=== PATIENT | female | born 1960 | race Caucasian/White ===

== ENCOUNTER 2016-11-28 13:57 | Inpatient (IN) | payer MEDICARE, OTHER ==
[2016-11-28] MEDS ORDERED: SODIUM CHLORIDE 0.9% 1,000 ML IV STA ×2 (17:00→17:41)
--- NOTE | 2016-11-28 17:32 | XR ---
EXAMINATION TYPE: XR KUB DATE OF EXAM: 11/28/2016 5:25 PM COMPARISON: 10/18/2016 HISTORY: Hematuria and back pain TECHNIQUE: 2 views FINDINGS: There are bilateral double-J ureteral stents. Bowel gas pattern is normal. There is no sign of intestinal obstruction or pneumoperitoneum. Fecal pattern is normal. There is amorphous 2 x 1 cm calcification over the lower pole left kidney. Lung bases are clear. There is no evidence of a mass. IMPRESSION: Nonacute abdomen. No change compared to last exam. Amorphous calcification or density ove r the left mid abdomen is below the lower pole of the left kidney on the CT scan of 08/29/2016 and is of uncertain significance..
[2016-11-28] MEDS ORDERED: HYDROmorphone 1 MG/ML 1 ML SYRINGE IVP STA (17:41)
--- NOTE | 2016-11-28 17:48 | ED ---
Abdominal Pain HPI - General Chief Complaint: Abdominal Pain Stated Complaint: Back Pain Time Seen by Provider: 11/28/16 17:00 Source: patient Mode of arrival: ambulatory Limitations: no limitations - History of Present Illness Initial Comments: This 55-year-old white female presents with a complaint of some hematuria which started yesterday. She's also had dysuria frequency and urgency. She developed some abdominal pain and back pain since last night. She denies any nausea or vomiting. She denies any fevers but has had occasional chills. She does have a history of previous urinary tract infections. She states that the pain is fairly severe and not controlled with her normal pain medications. She does have a history of breast cancer and is on chemotherapy for this. Apparently has spread to her liver and spine. Her last chemotherapy was approximately 9 days ago. She also relates that she has ureteral stents in place due to the cancer pushing on her kidneys. No other complaints or modifying factors. - Related Data Home Medications Medication Instructions Recorded Confirmed Cholecalciferol [Vitamin D3] 1,000 unit PO DAILY 02/19/15 11/28/16 Ondansetron [Zofran] 4 mg PO Q8HR PRN 07/18/16 11/28/16 fentaNYL 100MCG/HR PATCH 1 patch TRANSDERM Q72H 07/18/16 11/28/16 [Duragesic 100MCG/HR] Docusate [Colace] 200 mg PO DAILY 08/28/16 11/28/16 Ciprofloxacin HCl [Cipro] 250 mg PO Q12HR 11/28/16 11/28/16 Ferrous Sulfate [Feosol] 325 mg PO DAILY 11/28/16 11/28/16 oxyCODONE-APAP 10-325MG [Percocet 1 tab PO Q6HR PRN 11/28/16 11/28/16 10-325 mg] Previous Rx's Medication Instructions Recorded fentaNYL 25MCG/HR PATCH [Duragesic 1 patch TRANSDERM Q72H #7 patch 07/22/16 25MCG/HR] Allergies Allergy/AdvReac Type Severity Reaction Status Date / Time No Known Allergies Allergy Verified 11/28/16 17:00 Review of Systems ROS Statement: Those systems with pertinent positive or pertinent negative responses have been documented in the HPI. ROS Other: All systems not noted in ROS Statement are negative. Past Medical History Past Medical History: Cancer Additional Past Medical History / Comment(s): liver spine neck mets primary breast cancer, chemo 9 days ago, History of Any Multi-Drug Resistant Organisms: None Reported Past Surgical History: Hysterectomy Additional Past Surgical History / Comment(s): Bilateral no iv bp on left arm , lymph node removal left side, urinary stents Past Anesthesia/Blood Transfusion Reactions: No Reported Reaction Additional Past Anesthesia/Blood Transfusion Reaction / Comment(s): Just received blood Past Psychological History: No Psychological Hx Reported Additional Psychological History / Comment(s): Pt lives with family in a home. Pt is independent. She still drives a car. She does not have any outside agency helping at this time. She uses no assistive devices. Smoking Status: Never smoker Past Alcohol Use History: None Reported Additional Past Alcohol Use History / Comment(s): started smoking in 1978,quit 2001.was smoking 2 ppd by the time she quit. Past Drug Use History: None Reported - Past Family History Father Family Medical History: No Reported History Mother Family Medical History: Cancer Additional Family Medical History / Comment(s): Mother of Hodgkins disease. General Exam - General Exam Comments Initial Comments: GENERAL: The patient is well nourished and well hydrated. VITAL SIGNS: Heart rate, blood pressure, respiratory rate reviewed as recorded in nurse's notes. EYES: Pupils are round and reactive. Extraocular movements are intact. No conjunctival / lid redness or swelling. ENT: No external evidence of injury, swelling, or ecchymosis. Airway is patent. Throat is clear. NECK: Nontender. No swelling or evidence of injury. No subcutaneous emphysema. Trachea is midline. No thyroid mass. HEART: Regular rate and rhythm. Good peripheral pulses. LUNGS/CHEST: Breath sounds clear and equal bilaterally. No rales, rhonchi, or wheezes. No ecchymosis, subcutaneous emphysema, or tenderness. ABDOMEN: There is tenderness diffusely throughout the abdomen No palpable masses or organomegaly. No peritoneal signs. No abdominal wall swelling or ecchymosis. EXTREMITIES: No extremity tenderness. Normal muscle tone and function. There is tenderness in the bilateral para lumbar musculature worse on the right. NEUROLOGIC: Sensation is grossly intact. Cranial nerve exam reveals face is symmetrical, tongue is midline, speech is clear. SKIN: No abrasions or ecchymosis is noted. No induration or masses noted. PSYCHIATRIC: Alert and oriented. Appropriate behavior and judgment. Limitations: no limitations Course Vital Signs 11/28/16 11/28/16 11/28/16 14:29 18:41 19:00 Temperature 98.0 F 98.8 F Pulse Rate 93 68 Respiratory 16 16 16 Rate Blood Pressure 119/74 94/58 83/54 O2 Sat by Pulse 98 99 97 Oximetry 11/28/16 11/28/16 19:09 20:00 Temperature Pulse Rate 73 Respiratory 16 Rate Blood Pressure 107/62 120/73 O2 Sat by Pulse 98 97 Oximetry Medical Decision Making - Medical Decision Making The patient was seen and examined. All diagnostics were reviewed. An IV is started and she was hydrated. She also received 1 mg of Dilaudid and 4 mg of morphine. She received IV Rocephin after urinalysis does show some hematuria with possible urinary tract infection. The laboratory showed a slight increase in creatinine at 1.22 as well as a decreased chronic hemoglobin/anemia with a hemoglobin of 8.1. The computed tomography scan of the abdomen and pelvis shows evidence of bilateral hydronephrosis possibly related to malfunctioning ureteral stents. It also shows some ascites, liver metastases, and spinal metastases. The KUB x-ray shows a 2 cm 1 cm calcification in the left lower pole of the kidney and significance. It is felt associated require admission to the hospital for intractable pain. The case is discussed with Dr. Hall and he would like admission to medicine with him to consult. - Lab Data Result diagrams: 11/28/16 18:30 11/28/16 18:30 Lab Results 11/28/16 11/28/16 11/28/16 Range/Units 18:15 18:30 18:30 WBC 2.4 L (3.8-10.6) k/uL RBC 2.67 L (3.80-5.40) m/uL Hgb 8.1 L (11.4-16.0) gm/dL Hct 25.0 L (34.0-46.0) % MCV 93.4 (80.0-100.0) fL MCH 30.3 (25.0-35.0) pg MCHC 32.4 (31.0-37.0) g/dL RDW 15.0 (11.5-15.5) % Plt Count 135 L (150-450) k/uL Neutrophils % 74 % Lymphocytes % 12 % Monocytes % 8 % Eosinophils % 4 % Basophils % 0 % Neutrophils # 1.8 (1.3-7.7) k/uL Lymphocytes # 0.3 L (1.0-4.8) k/uL Monocytes # 0.2 (0-1.0) k/uL Eosinophils # 0.1 (0-0.7) k/uL Basophils # 0.0 (0-0.2) k/uL PT (9.0-12.0) sec INR (<1.1) APTT (22.0-30.0) sec Sodium 136 L (137-145) mmol/L Potassium 4.2 (3.5-5.1) mmol/L Chloride 101 (98-107) mmol/L Carbon Dioxide 27 (22-30) mmol/L Anion Gap 8 mmol/L BUN 18 H (7-17) mg/dL Creatinine 1.22 H (0.52-1.04) mg/dL Est GFR (MDRD) Af Amer 56 (>60 ml/min/1.73 sqM) Est GFR (MDRD) Non-Af 46 (>60 ml/min/1.73 sqM) Glucose 98 (74-99) mg/dL Calcium 8.6 (8.4-10.2) mg/dL Total Bilirubin 0.5 (0.2-1.3) mg/dL AST 58 H (14-36) U/L ALT 52 (9-52) U/L Alkaline Phosphatase 395 H (38-126) U/L Total Protein 5.5 L (6.3-8.2) g/dL Albumin 3.0 L (3.5-5.0) g/dL Amylase 36 (30-110) U/L Lipase 101 (23-300) U/L Urine Color Yellow Urine Appearance Cloudy H (Clear) Urine pH 6.5 (5.0-8.0) Ur Specific [place] 1.019 (1.001-1.035) Urine Protein 3+ H (Negative) Urine Glucose (UA) Negative (Negative) Urine Ketones Negative (Negative) Urine Blood Moderate H (Negative) Urine Nitrate Negative (Negative) Urine Bilirubin Negative (Negative) Urine Urobilinogen <2.0 (<2.0) mg/dL Ur Leukocyte Esterase Trace H (Negative) Urine RBC >182 H (0-5) /hpf Urine WBC 9 H (0-5) /hpf Ur Squamous Epith Cells 2 (0-4) /hpf Calcium Oxalate Crystal Occasional H (None) /hpf Urine Bacteria Rare H (None) /hpf Hyaline Casts 3 H (0-2) /lpf Urine Mucus Few H (None) /hpf 11/28/16 Range/Units 18:30 WBC (3.8-10.6) k/uL RBC (3.80-5.40) m/uL Hgb (11.4-16.0) gm/dL Hct (34.0-46.0) % MCV (80.0-100.0) fL MCH (25.0-35.0) pg MCHC (31.0-37.0) g/dL RDW (11.5-15.5) % Plt Count (150-450) k/uL Neutrophils % % Lymphocytes % % Monocytes % % Eosinophils % % Basophils % % Neutrophils # (1.3-7.7) k/uL Lymphocytes # (1.0-4.8) k/uL Monocytes # (0-1.0) k/uL Eosinophils # (0-0.7) k/uL Basophils # (0-0.2) k/uL PT 12.6 H (9.0-12.0) sec INR 1.3 (<1.1) APTT 26.7 (22.0-30.0) sec Sodium (137-145) mmol/L Potassium (3.5-5.1) mmol/L Chloride (98-107) mmol/L Carbon Dioxide (22-30) mmol/L Anion Gap mmol/L BUN (7-17) mg/dL Creatinine (0.52-1.04) mg/dL Est GFR (MDRD) Af Amer (>60 ml/min/1.73 sqM) Est GFR (MDRD) Non-Af (>60 ml/min/1.73 sqM) Glucose (74-99) mg/dL Calcium (8.4-10.2) mg/dL Total Bilirubin (0.2-1.3) mg/dL AST (14-36) U/L ALT (9-52) U/L Alkaline Phosphatase (38-126) U/L Total Protein (6.3-8.2) g/dL Albumin (3.5-5.0) g/dL Amylase (30-110) U/L Lipase (23-300) U/L Urine Color Urine Appearance (Clear) Urine pH (5.0-8.0) Ur Specific [place] (1.001-1.035) Urine Protein (Negative) Urine Glucose (UA) (Negative) Urine Ketones (Negative) Urine Blood (Negative) Urine Nitrate (Negative) Urine Bilirubin (Negative) Urine Urobilinogen (<2.0) mg/dL Ur Leukocyte Esterase (Negative) Urine RBC (0-5) /hpf Urine WBC (0-5) /hpf Ur Squamous Epith Cells (0-4) /hpf Calcium Oxalate Crystal (None) /hpf Urine Bacteria (None) /hpf Hyaline Casts (0-2) /lpf Urine Mucus (None) /hpf Disposition Clinical Impression: Bilateral hydronephrosis, Flank pain, Abdominal pain, Intractable pain, Breast cancer, Metastasis to spinal column, Hematuria, UTI (urinary tract infection), Chronic anemia, Acute kidney injury, Ascites Disposition: ADMITTED IP TO THIS [facility] Condition: Fair Time of Disposition: 20:40 Decision Date: 11/28/16 Decision Time: 20:40
[2016-11-28 18:52] LABS: Appearance,Urine Cloudy (Clear); Bacteria,Urine Rare /hpf; Bilirubin,Urine Negative (Negative); Calcium Oxalate Crystals,Urine Occasional /hpf; Glucose,Urine (UA) Negative (Negative); Ketones,Urine Negative (Negative); Leukocyte Esterase,Urine Trace (Negative); Mucus,Urine Few /hpf; Nitrite,Urine Negative (Negative); PH, Urine 6.5 (5.0-8.0); Particle Count 6643; Protein,Urine 3+ (Negative); RBC,Urine >182 /hpf (0-5); Specific Gravity,Urine 1.019 (1.001-1.035); Squamous Epithelial Cell,Urine 2 /hpf (0-4); UA Billing (MACRO vs. MICRO) MICRO; Urobilinogen,Urine <2.0 mg/dL (<2.0); WBC,Urine 9 /hpf (0-5)
[2016-11-28 18:54] LABS: Basophils % (A) 0 %; CH 30.6; CHCM 32.9; Eosinophils # (A) 0.1 k/uL (0-0.7); Eosinophils % (A) 4 %; HDW 2.47; HGB 8.1 gm/dL (11.4-16.0); Luc # (Auto) 0.04; Luc % (Auto) 2; Lymphocytes # (A) 0.3 k/uL (1.0-4.8); Lymphocytes % (A) 12 %; MCH 30.3 pg (25.0-35.0); MCHC 32.4 g/dL (31.0-37.0); MCV 93.4 fL (80.0-100.0); Mean Platelet Volume 7.9; Monocytes # (A) 0.2 k/uL (0-1.0); Monocytes % (A) 8 %; Neutrophils # (A) 1.8 k/uL (1.3-7.7); Neutrophils % (A) 74 %; RBC 2.67 m/uL (3.80-5.40); WBC 2.4 k/uL (3.8-10.6); WBC (Perox) 2.41
[2016-11-28 19:02] LABS: Calcium 8.6 mg/dL (8.4-10.2); Potassium 4.2 mmol/L (3.5-5.1); Total Bilirubin 0.5 mg/dL (0.2-1.3); Total Protein 5.5 g/dL (6.3-8.2)
[2016-11-28 19:09] LABS: INR 1.3 (<1.1); Partial Thromboplastin Time 26.7 sec (22.0-30.0); Prothrombin Time 12.6 sec (9.0-12.0)
--- NOTE | 2016-11-28 20:02 | CT ---
EXAMINATION TYPE: CT abdomen pelvis wo con DATE OF EXAM: 11/28/2016 7:54 PM COMPARISON: 08/29/2016 HISTORY: Bilateral flank pain. Hx of liver and spine mets. Primary Breast CA. CT DLP: 593.0 mGycm Automated exposure control for dose reduction was used. TECHNIQUE: Helical acquisition of images was performed from the lung bases through the pelvis. FINDINGS: Lung bases are clear. There is no pleural effusion. Heart size is normal. There are numerous areas of decreased density throughout the liver. Liver is small with irregular mar gin. There is moderate amount of ascites fluid throughout the abdomen. There are bilateral double-J u reteral stents. There is bilateral hydronephrosis. I see no evidence of a bowel obstruction. Bladder distends smoothly. There is no evidence of pneumoperitoneum. Spleen shows no focal defect. There is n o sign of a pancreatic mass. There is patchy osteosclerosis in the lumbar spine. There is no compress ion fracture. IMPRESSION: OSTEOBLASTIC CHANGES IN THE SPINE CONSISTENT WITH METASTATIC DISEASE. MASSIVE ASCITES. SMALL LIVER WITH IRREGULAR MARGINS CONSISTENT WITH CIRRHOSIS. MULTIPLE LOW DENSITY AREAS THROUGHOUT T HE LIVER ARE IRREGULAR AND CONSISTENT WITH TREATED METASTATIC DISEASE. LIVER IS UNCHANGED COMPARED TO 08/29/2016. OSTEOBLASTIC CHANGES ARE NOT SIGNIFICANTLY DIFFERENT. ASCITES IS UNCHANGED. THERE IS CLEARING OF THE BILATERAL PLEURAL EFFUSIONS COMPARED TO LAST EXAM. THERE IS BILATERAL HYDRONEPHROSIS THAT IS ESSENTIALLY NEW COMPARED TO OLD EXAM AND SUGGEST THE POSSIB ILITY OF MALFUNCTIONING URETERAL STENTS.
[2016-11-28] MEDS ORDERED: MORPHINE SULFATE 4 MG/ML SYRINGE IV STA (20:23)
[2016-11-28] MEDS ORDERED: NALOXONE 0.4 MG/ML 1 ML VIAL IV PRN (21:05)
[2016-11-28] MEDS ORDERED: ONDANSETRON 4 MG/2 ML VIAL IVP PRN (21:05)
[2016-11-28] MEDS ORDERED: oxyCODONE-APAP 10-325MG 1 EACH TAB PO PRN (21:08)
[2016-11-28 23:45] VITALS: BMI 16.6
[2016-11-29] MEDS: MORPHINE SULFATE 4 MG/ML SYRINGE IV PRN ×5 (03:06→22:03)
[2016-11-29 07:53] LABS: Glucose,Whole Blood 92 mg/dL (75-99)
--- NOTE | 2016-11-29 08:16 | P.GSCN ---
History of Present Illness Consult date: 11/29/16 History of present illness: The patient is a 55 yo with metastatic breast cancer. I placed bilateral double j catheters in 07/2016 for obstruction and hydronephrosis. SHe presents with back pain and hematuria, She has had a lot of discomfort from the stents. She had a ct scan in the er identifying bilateral stents with some hydro. I reviewed the ct scan and donot see much difference in the hydro. She has cirrhosis and ascites. Her cr is stable at 1,2 SHe had chemo 9 days ago. Review of Systems - Constitutional Reports chronic pain, Reports lethargy, Reports poor appetite - Gastrointestinal Reports abdominal pain, Reports bloating - Genitourinary Genitourinary: Reports as per HPI, Reports dysuria - Musculoskeletal Reports low back pain Past Medical History Past Medical History: Cancer Additional Past Medical History / Comment(s): liver spine neck mets primary breast cancer, chemo 9 days ago, History of Any Multi-Drug Resistant Organisms: None Reported Past Surgical History: Hysterectomy Additional Past Surgical History / Comment(s): Bilateral mastectomy; no iv bp on left arm, lymph node removal left side, urinary stents in August 2016 Past Anesthesia/Blood Transfusion Reactions: No Reported Reaction Additional Past Anesthesia/Blood Transfusion Reaction / Comm: Just received blood Past Psychological History: No Psychological Hx Reported Additional Psychological History / Comment(s): Pt lives with family in a home. Pt is independent. She still drives a car. She does not have any outside agency helping at this time. She uses no assistive devices. Smoking Status: Former smoker Past Alcohol Use History: None Reported Additional Past Alcohol Use History / Comment(s): started smoking in 1978,quit 2001.was smoking 1 ppd by the time she quit. Past Drug Use History: None Reported - Past Family History Father Family Medical History: No Reported History Mother Family Medical History: Cancer Additional Family Medical History / Comment(s): Mother of Hodgkins disease. Medications and Allergies Home Medications Medication Instructions Recorded Confirmed Type Cholecalciferol [Vitamin D3] 1,000 unit PO DAILY 02/19/15 11/28/16 History Ondansetron [Zofran] 4 mg PO Q8HR PRN 07/18/16 11/28/16 History fentaNYL 100MCG/HR PATCH 1 patch TRANSDERM Q72H 07/18/16 11/28/16 History [Duragesic 100MCG/HR] Docusate [Colace] 200 mg PO DAILY 08/28/16 11/28/16 History Ciprofloxacin HCl [Cipro] 250 mg PO Q12HR 11/28/16 11/28/16 History Ferrous Sulfate [Feosol] 325 mg PO DAILY 11/28/16 11/28/16 History oxyCODONE-APAP 10-325MG [Percocet 1 tab PO Q6HR PRN 11/28/16 11/28/16 History 10-325 mg] Allergies Allergy/AdvReac Type Severity Reaction Status Date / Time No Known Allergies Allergy Verified 11/28/16 17:00 Surgical - Exam Vital Signs Temp Pulse Resp BP Pulse Ox 98.0 F 93 16 119/74 98 11/28/16 14:29 11/28/16 14:29 11/28/16 14:29 11/28/16 14:29 11/28/16 14:29 - General well developed, well nourished, moderate distress - Eyes PERRL - ENT no hearing loss - Respiratory normal expansion, normal respiratory effort - Cardiovascular Rhythm: regular - Abdomen Abdomen: distended - Neurologic normal coordination, normal sensation - Musculoskeletal normal posture - Psychiatric oriented to time, oriented to person, oriented to place Results - Labs 11/28/16 18:30 11/28/16 18:30 Assessment and Plan Plan: Impression: Metastatic breast ca. Bilateral hydronephrosis with stents. Back pain, ascites, cirrhosis. recommendations: The back pain and abdominal distention may be due to the cirrhoosis and ascites. Her cr is stable and by my review the hydro is stable. However it has been 4 mos since I placed the staents so I will exchange them later today. I explained to the patient this may not affect her pain or urgency.
[2016-11-29] MEDS: DOCUSATE 100 MG CAP PO SCH (08:32)
[2016-11-29] MEDS: ENOXAPARIN 40 MG/0.4 ML SYRINGE SQ SCH (08:33)
[2016-11-29] MEDS: PANTOPRAZOLE 40 MG/10 ML VIAL IV SCH (08:33)
[2016-11-29] MEDS: CHOLECALCIFEROL 1,000 UNIT TAB PO SCH (11:47)
[2016-11-29] MEDS: FERROUS SULFATE 325 MG TAB PO SCH (11:47)
[2016-11-29] MEDS ORDERED: IV FLUID CONTINUATION 50 ML IV ONE (14:17)
[2016-11-29] MEDS ORDERED: FAMOTIDINE 20 MG/2 ML VIAL IVP ONE (14:31)
[2016-11-29] MEDS ORDERED: ONDANSETRON 4 MG/2 ML VIAL IVP ONE (14:32)
[2016-11-29] MEDS ORDERED: PROPOFOL 10 MG/ML 20 ML VIAL IV ONE (15:02)
[2016-11-29] MEDS ORDERED: MIDAZOLAM 2 MG/2 ML VIAL ONE (15:02)
[2016-11-29] MEDS ORDERED: IV FLUID CONTINUATION 1,000 ML IV ONE (15:02)
[2016-11-29] MEDS ORDERED: fentaNYL (PF) 50 MCG/ML 2 ML AMP ONE (15:02)
[2016-11-29] MEDS ORDERED: LACTATED RINGERS 1,000 ML IV ONE (15:09)
--- NOTE | 2016-11-29 15:32 | P.OP ---
Date of Procedure: 11/29/16 Preoperative Diagnosis: Bilateral hydronephrosis secondary to metastatic breast cancer status post stent placement Postoperative Diagnosis: Same Procedure(s) Performed: Cystoscopy with exchange of bilateral double-J catheters, 6 x 24 Anesthesia: MAC Surgeon: Mane Anaya Estimated Blood Loss (ml): 0 Pathology: none sent Condition: stable Disposition: PACU Indications for Procedure: The patient is a 55-year-old female with metastatic breast cancer. She had cystoscopy and stent placement in July due to bilateral hydronephrosis. She presented emergency room with progressive back pain abdominal discomfort. She is found to have ascites cirrhosis. The radiologist felt that there is more hydronephrosis and previously seen in July however my review did not necessarily and clear with that. Creatinine is stable at 1.2. She is due for stent change regardless. Hopefully this will relieve her back and pelvic pressure that she has. Description of Procedure: The patient brought to the operating suite and given IV sedation. She's placed lithotomy position with a sterile prep and drape. Cystoscopy Foroblique lens and 22-Hebrew sheath identifies a normal urethra. The bladder is inspected. There is periureteral orifice he'll edema due to bilateral stents. The stents are not encrusted. The bladder wall is otherwise unremarkable. The right stent is grasped and pulled to the urethral meatus. Through this is passed an 035 wire that coils in the renal pelvis. The previous stent was removed. The new stent 6 x 24 hours placed over the wire pass in the renal pelvis and coils in the bladder. Its position is confirmed endoscopically and fluoroscopically. The left side is performed in identical fashion. The bladder strain the patient's awake and returned recovery in good condition. Both stents were seated appropriately in the renal pelves and in the bladder confirmed again fluoroscopically and endoscopically. The patient awake and returned recovery room good condition tell procedure well. Hopefully this will relieve her back and pelvic pressure however I'm not convinced will based on her cancer and ascites.
--- NOTE | 2016-11-29 15:53 | FL ---
EXAMINATION TYPE: FL guidance operating room DATE OF EXAM: 11/29/2016 3:42 PM HISTORY: Fluoroscopy time 42 seconds of fluoroscopy provided. IMPRESSION: 1. Fluoroscopy time.
[2016-11-29] MEDS ORDERED: ONDANSETRON 4 MG TAB PO PRN (16:19)
--- NOTE | 2016-11-29 20:32 | HP ---
DATE OF ADMISSION: 11/28/2016 CHIEF COMPLAINT: Back pain and blood in the urine. HISTORY OF PRESENT ILLNESS: Ms. Corona is a 55-year-old female with a known history of left breast cancer with metastasis to bones, spine, lung, liver and is currently undergoing chemotherapy at [facility] in [place], and history of recent ureteral stent placement, due to metastasis, came to the hospital with complaints of blood in the urine. Patient developed abdominal pain and back pain since last night and the patient is also complaining of dysuria and hematuria. Patient denied any fever or chills. No nausea or vomiting, abdominal pain. No nausea, vomiting. The patient also had lower abdominal pain. Patient has been undergoing chemotherapy for metastatic breast cancer. The patient was seen by urology and started on ( ) bilateral hydronephrosis, abdominal distention due to cirrhosis and ascites unlikely from the ureteral stents. Patient had ureter stents had been replaced today. Patient currently on antibiotics as well and CT of the abdomen and pelvis showed a small liver with irregular margins consistent with liver cirrhosis and also osteoblastic changes are not significantly different. Patient also has ascites in this area as well but no complaints of short of breath at this time. REVIEW OF SYSTEMS: CONSTITUTIONAL: No fever. No chills. Patient does have generalized weakness. RESPIRATORY: No cough or sputum production. CARDIOVASCULAR: No chest pain. No short of breath. No leg swelling. ABDOMEN: No nausea or vomiting. Patient does have abdominal pain. No diarrhea. No constipation. GENITOURINARY: The patient does have hematuria. No dysuria. The patient does have hematuria and dysuria as well. PSYCHIATRIC: Cooperative, anxious. ENDOCRINE: Negative. NEUROLOGIC: Negative. MUSCULOSKELETAL: Negative. All other 14 point review of systems negative except for as above. PAST MEDICAL HISTORY: Metastatic breast cancer to liver, spine and neck. PAST SURGICAL HISTORY: Hysterectomy, bilateral lymph node removal left side and ureteral stent placement and replacement done on 11/29/2016. No psychosocial history. SOCIAL HISTORY: Patient lives with family at home and is independent. Never a smoker, started smoking in 1978, quit in 2001. The patient smoked 2 packs per day by the time she quit. Denied any alcohol. Denied any drugs or IVDU. FAMILY HISTORY: Mother of Hodgkin's disease. Father had no reported history. No known drug allergies. Home medication: 1. Fentanyl patch. 2. Vitamin D3. 3. Zofran. 4. ( ). 5. Ciprofloxacin. PHYSICAL EXAMINATION: 55-year-old female lying in the bed, awake, alert and oriented x3, appears to be in no apparent distress and the patient feels very weak. VITALS: Blood pressure is 107/63, pulse is 70, respirations 18, temperature afebrile, pulse ox 100% on nasal cannula. HEENT: Atraumatic, normocephalic. Neck is supple. No JVD. CVS: S1, S2 heard. No murmurs, no gallop. LUNGS: Bilateral air entry is present. Decreased breath sounds bilateral basally. Nonlabored breathing. ABDOMEN: No wheezing. Abdomen soft, slightly distended with ascites. No guarding or rigidity. Bowel sounds are present. EXTREMITIES: Trace edema. Pulses palpable bilaterally. No clubbing or cyanosis. PSYCHIATRIC: Cooperative. LABORATORY DATA: WBC ( ), hemoglobin 8.1, platelets 135, INR 1.3. Sodium 136, potassium 4.2, chloride 111, bicarb 27. BUN 18, creatinine 1.22. AST 58, ALT 52, alkaline phosphatase 395. Albumin 3.0. Urine is cloudy. Moderate blood. Trace leukocyte esterase and beta HCG not detected. ( ) is reported, reviewed. IMPRESSION: 1. Hematuria with possible acute blood loss anemia. 2. History of bilateral ureteral stent placement due to cancer pushing the ureter. 3. Back pain mostly secondary to metastatic wound lesions. 4. Metastatic left breast cancer, currently undergoing chemotherapy at [facility] in [place], [place]. 5. History of urinary tract infection. 6. Normocytic anemia. 7. Mild to moderate protein calorie malnutrition due to decreased intake. Albumin of 3.0. 8. History of bilateral mastectomy. 9. Metastatic breast with mets to liver, spine and neck. DISCUSSION AND PLAN: Patient will be continued on IV fluids, continue to monitor hemoglobin and hematocrit and continue the pain management. Continue with empiric antibiotics as well. Anticipate discharge tomorrow if the hemoglobin is stable and pain improves. Currently on Percocet 10 and fentanyl patch. DVT prophylaxis with SCDs. Further recommendations based on clinical course.
[2016-11-29] MEDS: CIPROFLOXACIN HCL 250 MG TAB PO SCH (21:05)
--- NOTE | 2016-11-30 00:47 | P.CONS ---
History of Present Illness - Reason for Consult Consult date: 11/29/16 Metastatic breast cancer, intractable pain - History of Present Illness The patient is a 55-year-old lady well known to our service. 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 She was treated with lumpectomy and radiation, and recommended to have 5 years of tamoxifen but stopped it after short time. In 08/16, she developed invasive lobular carcinoma of the left breast. She underwent bilateral mastectomies. She was found to have one lymph node positive. She then had 6 cycles of chemotherapy and was started on tamoxifen. In 12/2014 she developed progression with metastatic disease in the skeleton and liver. She has had various therapies since then, including combination Faslodex, Afinitor, aromatase inhibitor and IV bisphosphonate on clinical trial, but disease control till , followed by Jonathon and Mackenzie, were disease control until 05/21. At that time she again had progression in the liver, and was placed on weekly Taxol. He progressed after the first cycle again in the liver. She was admitted to the hospital on 07/18/16 with the intractable back pain. She was found to have evidence of bilateral hydronephrosis , felt to be due to progression of disease in the pelvis. MRI of the spine showed known bone metastasis without evidence of progression, displacement or fracture . She underwent bilateral ureteral stent placement, with improvement in her renal function. She was then discharged and started on AC, with the first dose given on 07/28/2016. She then progressed through AC, and was assessed for a possible clinical trial using Xeloda and an investigational agent at the [facility]. She did not qualify due to low Hgb, and started Xeloda alone. She finished her 1st cycle last week and is on her week off. She presented with recurrent bleedin gin the urine, and progressive pain in the lower back, and mid abdomen. KUB Xray in the ER was unremarkable. CT AP revealed b/l hydronephrosis, increased compared to her previous CT scans from . At that time, hydronephrosis had improved post stent placement. She was thus admitted for further management. Review of Systems Constitutional: Reports poor appetite, Reports weakness, Reports weight loss Eyes: denies blurred vision, denies pain Ears: deny: decreased hearing, ear discharge, earache, tinnitus Ears, nose, mouth and throat: Denies headache, Denies sore throat Cardiovascular: Reports dyspnea on exertion Respiratory: Denies cough Gastrointestinal: Reports abdominal pain, Reports constipation Genitourinary: Reports as per HPI, Reports dysuria, Reports flank pain, Reports hematuria Menstruation: Reports postmenopausal Musculoskeletal: Reports low back pain Integumentary: Denies pruritus, Denies rash Neurological: Reports weakness Psychiatric: Denies anxiety, Denies depression Endocrine: Reports weight change Hematologic/Lymphatic: Reports as per HPI Past Medical History Past Medical History: Cancer Additional Past Medical History / Comment(s): liver spine neck mets primary breast cancer, chemo 9 days ago, History of Any Multi-Drug Resistant Organisms: None Reported Past Surgical History: Hysterectomy Additional Past Surgical History / Comment(s): Bilateral mastectomy; no iv bp on left arm, lymph node removal left side, urinary stents in August 2016 Past Anesthesia/Blood Transfusion Reactions: No Reported Reaction Additional Past Anesthesia/Blood Transfusion Reaction / Comm: Just received blood Past Psychological History: No Psychological Hx Reported Additional Psychological History / Comment(s): Pt lives with family in a home. Pt is independent. She still drives a car. She does not have any outside agency helping at this time. She uses no assistive devices. Smoking Status: Former smoker Past Alcohol Use History: None Reported Additional Past Alcohol Use History / Comment(s): started smoking in 1978,quit 2001.was smoking 1 ppd by the time she quit. Past Drug Use History: None Reported - Past Family History Father Family Medical History: No Reported History Mother Family Medical History: Cancer Additional Family Medical History / Comment(s): Mother of Hodgkins disease. Medications and Allergies Home Medications Medication Instructions Recorded Confirmed Type Cholecalciferol [Vitamin D3] 1,000 unit PO DAILY 02/19/15 11/28/16 History Ondansetron [Zofran] 4 mg PO Q8HR PRN 07/18/16 11/28/16 History fentaNYL 100MCG/HR PATCH 1 patch TRANSDERM Q72H 07/18/16 11/28/16 History [Duragesic 100MCG/HR] Docusate [Colace] 200 mg PO DAILY 08/28/16 11/28/16 History Ciprofloxacin HCl [Cipro] 250 mg PO Q12HR 11/28/16 11/28/16 History Ferrous Sulfate [Feosol] 325 mg PO DAILY 11/28/16 11/28/16 History oxyCODONE-APAP 10-325MG [Percocet 1 tab PO Q6HR PRN 11/28/16 11/28/16 History 10-325 mg] Allergies Allergy/AdvReac Type Severity Reaction Status Date / Time No Known Allergies Allergy Verified 11/28/16 17:00 Physical Exam Vitals: Vital Signs Temp Pulse Pulse Resp BP BP Pulse Ox 11/29/16 16:42 97.4 F L 57 L 16 96/57 98 11/29/16 16:00 61 18 102/72 100 11/29/16 15:47 70 18 107/63 100 11/29/16 15:32 68 14 97/63 100 11/29/16 14:27 97.5 F L 59 L 18 146/63 98 11/29/16 08:00 77 16 11/29/16 07:00 98.7 F 77 16 90/47 96 11/29/16 00:00 16 11/28/16 23:00 98.2 F 83 16 105/56 97 11/28/16 21:00 98.3 F 82 16 117/64 97 Intake and Output 11/29/16 11/29/16 11/29/16 06:59 14:59 22:59 Intake Total 50 420 Output Total 400 Balance -350 420 Intake: IV 50 300 Oral 120 Output: Urine 400 Other: Voiding Method Toilet Toilet Toilet Weight 44 kg 44 kg Patient Weight 11/30/16 06:59 Weight 44 kg - Constitutional General appearance: no acute distress - EENT Eyes: EOMI, PERRLA ENT: hearing grossly normal, normal oropharynx - Neck Neck: no lymphadenopathy Thyroid: bilateral: normal size - Respiratory Respiratory: bilateral: CTA - Cardiovascular Rhythm: regular Heart sounds: normal: S1, S2 - Gastrointestinal General gastrointestinal: distended (mild), normal bowel sounds, soft - Integumentary Integumentary: normal - Neurologic Neurologic: CNII-XII intact - Musculoskeletal Musculoskeletal: generalized weakness, strength equal bilaterally - Psychiatric Psychiatric: A&O x's 3, appropriate affect Results CBC & Chem 7: 11/28/16 18:30 11/28/16 18:30 Abdominal x-ray: report reviewed CT scan - abdomen: report reviewed, image reviewed, other (From 11/28/16 and ) CT scan - chest: report reviewed, image reviewed, other (from 11/28/16 and 08/21) Assessment and Plan (1) Intractable pain Narrative/Plan: The pain is localised mainly to the lower back. It is also presented in the anterior abdomen, but less prominently. Given her symptoms, and possible increased hydronephrosis, stent blockage, including due to cancer progression in the lower pelvis ( retrovesical) is a possible cause. The pt is s/p stent exchange, and feels somewhat better. She is on fentanyl, and Iv morphine. We will assess how she does with the stent exchange. If pain persists to the same degree, RT to the possible areas of involvement will be considered. Status: Acute (2) Hydronephrosis Narrative/Plan: It is not clear if there was definitely progression or not. In any case the pt did get her stents changed already. She does report some improvement in he symptoms. Status: Acute (3) Bicytopenia Narrative/Plan: Due to chemo. Pt is currently in her week off for her cycle #1 of Xeloda. Counts are currently in an acceptable range. Continue to monitor and support with transfusions and growth factors as needed Status: Acute (4) Breast cancer Narrative/Plan: THe pt 's course is as noted in the HPI. She has known liver and bone mets. Even if her current presentation represents progression, she will continue her current regimen, as she has just completed 1 cycle and it is too early to gauge effectiveness Status: Acute
--- NOTE | 2016-11-30 07:44 | P.PN ---
Subjective Principal diagnosis: The patient is in her first day post exchange of bilateral double-J catheters. She states her pain is completely gone. Her abdominal discomfort is gone and she doesn't feel she needs the Vesicare. Armani standpoint she can be discharged at any time. I would need to see her in 3 months to reschedule stent replacement. Objective - Vital Signs Vital signs: Vital Signs Temp 98.4 F 11/29/16 23:00 Pulse 75 11/29/16 23:00 Resp 16 11/29/16 23:00 BP 83/52 11/29/16 23:00 Pulse Ox 96 11/29/16 23:00 Intake & Output 11/29/16 11/30/16 11/30/16 18:59 06:59 18:59 Intake Total 470 Output Total 400 Balance 70 Weight 44 kg Intake: IV 350 Oral 120 Output: Urine 400 Other: Voiding Method Toilet Toilet # Voids 2 - Labs CBC & Chem 7: 11/28/16 18:30 11/28/16 18:30
[2016-11-30 08:05] VITALS: RESP 18
[2016-11-30] MEDS: PANTOPRAZOLE 40 MG/10 ML VIAL IV SCH (08:55)
[2016-11-30] MEDS: ENOXAPARIN 40 MG/0.4 ML SYRINGE SQ SCH (08:56)
[2016-11-30] MEDS: DOCUSATE 100 MG CAP PO SCH (08:56)
[2016-11-30] MEDS: CIPROFLOXACIN HCL 250 MG TAB PO SCH (08:56)
[2016-11-30] MEDS: MORPHINE SULFATE 4 MG/ML SYRINGE IV PRN (08:57)
[2016-11-30 09:28] LABS: Anion Gap 7 mmol/L; Blood Urea Nitrogen 12 mg/dL (7-17); Calcium 8.4 mg/dL (8.4-10.2); Carbon Dioxide 27 mmol/L (22-30); Chloride 105 mmol/L (98-107); Glucose 136 mg/dL (74-99); Non-African American GFR(MDRD) 60 (>60 ml/min/1.73 sqM); Potassium 4.3 mmol/L (3.5-5.1); Sodium 139 mmol/L (137-145)
[2016-11-30 10:04] LABS: Basophils % (A) 0 %; CH 30.6; CHCM 31.7; Eosinophils # (A) 0.1 k/uL (0-0.7); Eosinophils % (A) 4 %; HCT 25.8 % (34.0-46.0); HDW 2.53; Luc # (Auto) 0.03; Luc % (Auto) 1; Lymphocytes # (A) 0.3 k/uL (1.0-4.8); Lymphocytes % (A) 11 %; MCV 96.9 fL (80.0-100.0); Mean Platelet Volume 7.9; Monocytes # (A) 0.3 k/uL (0-1.0); Monocytes % (A) 13 %; Neutrophils # (A) 1.7 k/uL (1.3-7.7); Neutrophils % (A) 71 %; RBC 2.67 m/uL (3.80-5.40); RDW 15.7 % (11.5-15.5); WBC 2.4 k/uL (3.8-10.6); WBC (Perox) 2.36
[2016-11-30] MEDS: CHOLECALCIFEROL 1,000 UNIT TAB PO SCH (11:50)
[2016-11-30] MEDS: FERROUS SULFATE 325 MG TAB PO SCH (11:50)
[2016-11-30 15:11] VITALS: BP 106/64; PULSE 71; TEMP 98.2
--- NOTE | 2016-12-03 19:37 | P.DS ---
Providers Date of admission: 11/28/16 20:40 Expected date of discharge: 11/30/16 Attending physician: Anu Panda Consults: 11/28/16 21:06 Consult Physician Urgent Consulting Provider: Mane Anaya Consult Reason/Comments: hydronephrosis with hx ureteral stents Do you want consulting provider notified?: Already Contacted 11/28/16 21:08 Consult Physician Urgent Consulting Provider: Chilango Watts Consult Reason/Comments: cancer Do you want consulting provider notified?: Yes Primary care physician: Chilango [facility] Course: Final diagnoses: 1. [Hematuria with possible acute blood loss anemia]. 2. [Recent bilateral ureteral stent placement secondary to bilateral hydronephrosis due to cancer progression]. Status post cystoscopy with exchange of bilateral double-J catheters secondary to possible worsened hydronephrosis, stent blockage secondary to possible cancer progression. 3. [Back pain mostly secondary to metastatic CA]. 4. [Metastatic left breast cancer with metastases to liver and bone, currently undergoing chemotherapy]. 5. [History of UTI]. 6. [Normocytic anemia, of chronic disease]. 7. [Moderate protein calorie malnutrition secondary to decreased intake, albumin 3.0]. 8. History of bilateral mastectomy 9. Bicytopenia secondary to chemo Hospital course: This a 55-year-old female admitted with complaints of hematuria , dysuria, mid-abdominal and lower back pain, without fever or chills in a patient with known history of left breast cancer with metastasis to bone, spine , lung , liver, and history of recent ureteral stent placement secondary to bilateral hydronephrosis due to cancer progression. KUB nonacute with no change compared to prior exam; density over the left mid abdomen, below the lower pole of the left kidney. CT of the abdomen and pelvis reported small liver with irregular margins consistent with liver cirrhosis, metastatic disease to the liver-unchanged, osteoblastic changes not significantly different ,ascites unchanged, bilateral hydronephrosis that is essentially new suggesting possibility of malfunctioning ureteral stents. Treated with IV fluid hydration , pain management, empiric antibiotics .Evaluated by both Dr. Suh, oncology and Dr. Anaya urology. Underwent cystoscopy with exchange of bilateral double-J catheters. Tolerated procedure well, pain subsided. Cleared by both oncology and urology for discharge. Patient is being discharged home in a stable condition with guarded prognosis. Patient Condition at Discharge: Stable Plan - Discharge Summary New Discharge Prescriptions: Ciprofloxacin HCl [Cipro] 250 mg PO Q12HR #10 tab Discharge Medication List Cholecalciferol [Vitamin D3] 1,000 unit PO DAILY 02/19/15 [History] Ondansetron [Zofran] 4 mg PO Q8HR PRN 07/18/16 [History] fentaNYL 100MCG/HR PATCH [Duragesic 100MCG/HR] 1 patch TRANSDERM Q72H 07/18/16 [ History] fentaNYL 25MCG/HR PATCH [Duragesic 25MCG/HR] 1 patch TRANSDERM Q72H #7 patch [Rx] Docusate [Colace] 200 mg PO DAILY 08/28/16 [History] Ferrous Sulfate [Feosol] 325 mg PO DAILY 11/28/16 [History] oxyCODONE-APAP 10-325MG [Percocet 10-325 mg] 1 tab PO Q6HR PRN 11/28/16 [History ] Ciprofloxacin HCl [Cipro] 250 mg PO Q12HR #10 tab 11/30/16 [Rx] Follow up Appointment(s)/Referral(s): Mane Anaya MD [STAFF PHYSICIAN] - 02/28/17 8:00 am (Follow up in 3 months to reschedule stent replacement.) Chilango Watts MD [Primary Care Provider] - 12/02/16 9:15 am Ambulatory/Diagnostic Orders: Complete Blood Count w/diff [LAB.AMB] Time Frame: 3 Days, Location: Determined By Patient Patient Instructions/Handouts: *Surgery [facility] - Cystoscopy Discharge Instructions , Ureteral Stent Placement (DC) Activity/Diet/Wound Care/Special Instructions: Regular diet. Discharge Disposition: HOME SELF-CARE
== END 2016-11-30 16:40 | disposition home or self-care (01) | DRG 699 ==
LOC: EC 13:57 → 4MS4W 20:40
PROVIDERS: ADMIT Hospitalist; ATTEND Hospitalist
PROC: 0TP98DZ Removal of Intraluminal Device from Ureter, Via Natural or Artificial Opening Endoscopic (ICD-10-PCS; 2016-11-29)
PROC: 0T788DZ Dilation of Bilateral Ureters with Intraluminal Device, Via Natural or Artificial Opening Endoscopic (ICD-10-PCS; principal; 2016-11-29 09:05)
DX: T83.84XA Pain due to genitourinary prosthetic devices, implants and grafts, initial encounter (principal); N13.30 Unspecified hydronephrosis; N17.9 Acute kidney failure, unspecified; C78.00 Secondary malignant neoplasm of unspecified lung; C78.7 Secondary malignant neoplasm of liver and intrahepatic bile duct; R18.8 Other ascites; E44.0 Moderate protein-calorie malnutrition; C79.51 Secondary malignant neoplasm of bone; K74.60 Unspecified cirrhosis of liver; D64.9 Anemia, unspecified; R31.9 Hematuria, unspecified; Z85.3 Personal history of malignant neoplasm of breast; Z92.21 Personal history of antineoplastic chemotherapy; Z90.13 Acquired absence of bilateral breasts and nipples; Z87.891 Personal history of nicotine dependence; Z79.810 Long term (current) use of selective estrogen receptor modulators (SERMs); Z87.440 Personal history of urinary (tract) infections; Y84.6 Urinary catheterization as the cause of abnormal reaction of the patient, or of later complication, without mention of misadventure at the time of the procedure; Y92.009 Unspecified place in unspecified non-institutional (private) residence as the place of occurrence of the external cause
CPT/HCPCS: 36415; 74000; 74176; 80048; 80053; 81001; 81025; 82150; 83690; 85025; 85610; 85730; 87040; 87086; 96361; 96374; 96375; 99285

== ENCOUNTER 2016-12-05 17:35 | Emergency (ER) | payer MEDICARE ==
[2016-12-05 17:49] VITALS: BP 176/85; TEMP 98.2
[2016-12-05] MEDS ORDERED: HYDROmorphone 1 MG/ML 1 ML SYRINGE IVP STA ×2 (18:16→18:39)
[2016-12-05 18:34] LABS: Anisocytosis Slight; Basophils % (A) 0 %; CHCM 32.6; Eosinophils # (A) 0.1 k/uL (0-0.7); Eosinophils % (A) 2 %; HCT 29.2 % (34.0-46.0); Luc # (Auto) 0.12; Luc % (Auto) 3; Lymphocytes # (A) 0.3 k/uL (1.0-4.8); Lymphocytes % (A) 6 %; MCH 31.1 pg (25.0-35.0); MCHC 32.5 g/dL (31.0-37.0); MCV 95.5 fL (80.0-100.0); Monocytes # (A) 0.4 k/uL (0-1.0); Monocytes % (A) 9 %; Neutrophils # (A) 3.9 k/uL (1.3-7.7); Neutrophils % (A) 81 %; RBC 3.06 m/uL (3.80-5.40); RDW 16.1 % (11.5-15.5); WBC 4.8 k/uL (3.8-10.6); WBC (Perox) 4.87
[2016-12-05 18:38] LABS: HGB 9.5 gm/dL (11.4-16.0)
[2016-12-05 18:52] LABS: Calcium 8.9 mg/dL (8.4-10.2); Potassium 4.2 mmol/L (3.5-5.1); Total Bilirubin 0.8 mg/dL (0.2-1.3); Total Protein 5.8 g/dL (6.3-8.2)
[2016-12-05 19:20] VITALS: PULSE 81; RESP 14
--- NOTE | 2016-12-05 19:58 | ED ---
Abdominal Pain HPI - General Chief Complaint: Recheck/Abnormal Lab/Rx Stated Complaint: weakness Time Seen by Provider: 12/05/16 17:46 Source: patient, family, RN/MD, RN notes reviewed Mode of arrival: wheelchair Limitations: no limitations - History of Present Illness Initial Comments: This patient is a 55-year-old woman with history of cancer who had a stent placed for ureteral obstruction. The patient has had increasing right upper quadrant and right flank pain since last night. She tried taking an oral Percocet but it did not control the pain. They contacted her physician who prescribed Roxanol, but she has not been able to obtain this from the pharmacy yet. She presents here for pain management. The patient denies fevers, change in urine output, vomiting, change in bowel movements. MD Complaint: abdominal pain, flank pain -: hour(s) Location: RUQ, R flank Severity: severe Quality: cramping, sharp Consistency: constant Improves With: nothing Worsens With: nothing - Related Data Home Medications Medication Instructions Recorded Confirmed Cholecalciferol [Vitamin D3] 1,000 unit PO DAILY 02/19/15 12/05/16 Ondansetron [Zofran] 4 mg PO Q8HR PRN 07/18/16 12/05/16 fentaNYL 100MCG/HR PATCH 1 patch TRANSDERM Q72H 07/18/16 12/05/16 [Duragesic 100MCG/HR] Docusate [Colace] 200 mg PO DAILY 08/28/16 12/05/16 Ferrous Sulfate [Feosol] 325 mg PO DAILY 11/28/16 12/05/16 oxyCODONE-APAP 10-325MG [Percocet 1 tab PO Q6HR PRN 11/28/16 12/05/16 10-325 mg] Previous Rx's Medication Instructions Recorded fentaNYL 25MCG/HR PATCH [Duragesic 1 patch TRANSDERM Q72H #7 patch 07/22/16 25MCG/HR] Ciprofloxacin HCl [Cipro] 250 mg PO Q12HR #10 tab 11/30/16 Allergies Allergy/AdvReac Type Severity Reaction Status Date / Time No Known Allergies Allergy Verified 12/05/16 18:11 Review of Systems ROS Statement: Those systems with pertinent positive or pertinent negative responses have been documented in the HPI. ROS Other: All systems not noted in ROS Statement are negative. Constitutional: Denies: fever, chills Respiratory: Denies: cough, dyspnea Cardiovascular: Denies: chest pain, palpitations Gastrointestinal: Reports: abdominal pain Genitourinary: Denies: dysuria Musculoskeletal: Reports: back pain Skin: Denies: rash Neurological: Denies: headache, weakness, numbness Past Medical History Past Medical History: Cancer Additional Past Medical History / Comment(s): liver spine neck mets primary breast cancer, chemo 9 days ago, History of Any Multi-Drug Resistant Organisms: None Reported Past Surgical History: Hysterectomy Additional Past Surgical History / Comment(s): Bilateral mastectomy; no iv bp on left arm, lymph node removal left side, urinary stents in August 2016 Past Anesthesia/Blood Transfusion Reactions: No Reported Reaction Additional Past Anesthesia/Blood Transfusion Reaction / Comment(s): Just received blood Past Psychological History: No Psychological Hx Reported Additional Psychological History / Comment(s): Pt lives with family in a home. Pt is independent. She still drives a car. She does not have any outside agency helping at this time. She uses no assistive devices. Smoking Status: Former smoker Past Alcohol Use History: None Reported Additional Past Alcohol Use History / Comment(s): started smoking in 1978,quit 2001.was smoking 1 ppd by the time she quit. Past Drug Use History: None Reported - Past Family History Father Family Medical History: No Reported History Mother Family Medical History: Cancer Additional Family Medical History / Comment(s): Mother of Hodgkins disease. General Exam Limitations: no limitations General appearance: alert, in distress Head exam: Present: atraumatic, normocephalic Respiratory exam: Present: normal lung sounds bilaterally. Absent: respiratory distress, wheezes, rales, rhonchi, stridor Cardiovascular Exam: Present: regular rate, normal rhythm, normal heart sounds. Absent: systolic murmur, diastolic murmur, rubs, gallop GI/Abdominal exam: Present: soft, normal bowel sounds. Absent: distended, tenderness, guarding, rebound, bruit, pulsatile mass, hernia Extremities exam: Absent: pedal edema, calf tenderness Back exam: Present: normal inspection, CVA tenderness (R). Absent: CVA tenderness (L) Neurological exam: Present: alert Skin exam: Present: warm, dry, intact, pallor. Absent: rash Course Vital Signs 12/05/16 12/05/16 17:46 19:16 Temperature 98.2 F Pulse Rate 65 81 Respiratory 18 14 Rate Blood Pressure 176/85 176/85 O2 Sat by Pulse 100 Oximetry Medical Decision Making - Medical Decision Making The patient is given IV analgesia, 2 rounds of Dilaudid. On reevaluation, she had some mild improvement after the first, and then very good relief after the second round of medication. At that point the patient requests discharge. I discussed further analgesic use, and she is going to attempt control of her symptoms using the Roxanol. We also discussed appropriate further care and follow-up. Of note, on the abdominal x-rays, I did express concern with her that the position of the stent in the right ureter may have had some change. I did offer to admit the patient to have her seen by urology regarding the position of the stent, but the patient states she is feeling well and wants to go home. Should her pain recur she will return should there be change in urination she' ll return. She is otherwise going to follow up with her urologist to discuss the position of the stent. - Lab Data Result diagrams: 12/05/16 18:23 12/05/16 18:23 Lab Results 12/05/16 12/05/16 Range/Units 18:23 18:23 WBC 4.8 (3.8-10.6) k/uL RBC 3.06 L (3.80-5.40) m/uL Hgb 9.5 L D (11.4-16.0) gm/dL Hct 29.2 L (34.0-46.0) % MCV 95.5 (80.0-100.0) fL MCH 31.1 (25.0-35.0) pg MCHC 32.5 (31.0-37.0) g/dL RDW 16.1 H (11.5-15.5) % Plt Count 134 L (150-450) k/uL Neutrophils % 81 % Lymphocytes % 6 % Monocytes % 9 % Eosinophils % 2 % Basophils % 0 % Neutrophils # 3.9 (1.3-7.7) k/uL Lymphocytes # 0.3 L (1.0-4.8) k/uL Monocytes # 0.4 (0-1.0) k/uL Eosinophils # 0.1 (0-0.7) k/uL Basophils # 0.0 (0-0.2) k/uL Anisocytosis Slight Sodium 139 (137-145) mmol/L Potassium 4.2 (3.5-5.1) mmol/L Chloride 103 (98-107) mmol/L Carbon Dioxide 26 (22-30) mmol/L Anion Gap 10 mmol/L BUN 18 H (7-17) mg/dL Creatinine 1.47 H (0.52-1.04) mg/dL Est GFR (MDRD) Af Amer 45 (>60 ml/min/1.73 sqM) Est GFR (MDRD) Non-Af 37 (>60 ml/min/1.73 sqM) Glucose 108 H (74-99) mg/dL Calcium 8.9 (8.4-10.2) mg/dL Total Bilirubin 0.8 (0.2-1.3) mg/dL AST 81 H (14-36) U/L ALT 56 H (9-52) U/L Alkaline Phosphatase 354 H (38-126) U/L Total Protein 5.8 L (6.3-8.2) g/dL Albumin 3.3 L (3.5-5.0) g/dL Disposition Clinical Impression: Flank pain Disposition: HOME SELF-CARE Condition: Fair Instructions: Flank Pain (ED) Referrals: Chilango Watts MD [Primary Care Provider] - 1-2 days
--- NOTE | 2016-12-05 22:23 | XR ---
EXAMINATION TYPE: XR abdomen acute w cxr DATE OF EXAM: 12/05/2016 7:38 PM COMPARISON: CT abdomen and pelvis dated 11/28/2016. HISTORY: Bilateral flank pain with history of breast cancer metastatic to the liver and spine. TECHNIQUE: Single view of the chest and 2 views of the abdomen are submitted. FINDINGS: Single view of the chest fails demonstrate evidence for acute pulmonary disease. A right-sided MediP ort has its distal tip in the superior vena cava/right atrial junction. There is no evidence for pneumoperitoneum. Bilateral ureteral stents are noted. Postoperative change s are seen within the pelvis. Single loop of prominent small bowel seen within the left mid abdomen, which is nondilated measuring up to 2 cm. Known osseous metastasis are not well-visualized on this ex amination. The bowel gas pattern is unremarkable as there is air throughout nondilated small and larg e bowel. No sizeable air fluid levels. No abnormal calcifications. IMPRESSION: 1. Nonobstructive bowel gas pattern. No acute intra-abdominal pathology. 2. Bilateral ureteral stents in place. 3. Postoperative changes of the pelvis. 4. No acute cardiopulmonary pathology.
== END 2016-12-05 20:15 | disposition home or self-care (01) ==
LOC: EC 17:35
DX: R10.11 Right upper quadrant pain (principal); R10.31 Right lower quadrant pain; Z85.3 Personal history of malignant neoplasm of breast; Z85.05 Personal history of malignant neoplasm of liver; Z85.89 Personal history of malignant neoplasm of other organs and systems; Z87.891 Personal history of nicotine dependence; Z79.899 Other long term (current) drug therapy
CPT/HCPCS: 96374 ×2; 99285 ×2; 36415; 80053; 85025; 74022; J1170

== ENCOUNTER → 2017-02-14 | Outpatient (CLI) | payer MEDICARE ==
[~2017-02-14] MED LIST: SODIUM CHLORIDE 0.9% 250 ML in EMPTY BAG 1 BAG IV PRN; SODIUM CHLORIDE 0.9% 500 ML in EMPTY BAG 1 BAG IV PRN; ZOLEDRONIC ACID 4 MG in SODIUM CHLORIDE 0.9% 100 ML IV ONE
[2017-02-14 11:55] VITALS: BP 133/80; PULSE 76; RESP 16; TEMP 98.3
== END | disposition home or self-care (01) ==
LOC: PROCWHC3 11:20
PROVIDERS: ATTEND Internal Medicine Hematology & Oncology
DX: C79.51 Secondary malignant neoplasm of bone (principal); C50.919 Malignant neoplasm of unspecified site of unspecified female breast
CPT/HCPCS: 96365; J1642; J3489

== ENCOUNTER 2017-02-19 14:06 | Inpatient (IN) | payer MEDICARE, OTHER ==
[2017-02-19] MEDS ORDERED: RX INFO: IV CONTRAST WAS GIVEN 1 EACH MISC MISCELLANE PRN (14:51)
[2017-02-19] MEDS ORDERED: HYDROmorphone 2 MG/ML 1 ML SYRINGE IVP STA (14:53)
[2017-02-19] MEDS ORDERED: SODIUM CHLORIDE 0.9% 1,000 ML IV STA ×2 (14:53)
[2017-02-19] MEDS ORDERED: IPRATROPIUM-ALBUTEROL 3 ML NEB INHALATION STA (14:53)
[2017-02-19] MEDS ORDERED: SODIUM CHLORIDE 0.9% 500 ML IV STA (14:53)
[2017-02-19 15:06] LABS: Anisocytosis Slight; Basophils % (A) 0 %; CH 35.8; Eosinophils # (A) 0.1 k/uL (0-0.7); Eosinophils % (A) 3 %; HCT 29.9 % (34.0-46.0); HDW 2.69; HGB 10.3 gm/dL (11.4-16.0); Luc % (Auto) 3; Lymphocytes # (A) 0.4 k/uL (1.0-4.8); Lymphocytes % (A) 11 %; MCH 36.4 pg (25.0-35.0); MCHC 34.4 g/dL (31.0-37.0); MCV 105.8 fL (80.0-100.0); Macrocytosis Marked; Monocytes # (A) 0.3 k/uL (0-1.0); Monocytes % (A) 9 %; Neutrophils # (A) 2.5 k/uL (1.3-7.7); Neutrophils % (A) 74 %; RBC 2.83 m/uL (3.80-5.40); RDW 19.6 % (11.5-15.5); WBC 3.3 k/uL (3.8-10.6); WBC (Perox) 3.39
[2017-02-19 15:13] LABS: Partial Thromboplastin Time 23.5 sec (22.0-30.0)
[2017-02-19 15:14] LABS: ALT 44 U/L (9-52); AST 47 U/L (14-36); Alkaline Phosphatase 173 U/L (38-126); Anion Gap 11 mmol/L; Blood Urea Nitrogen 21 mg/dL (7-17); Calcium 8.6 mg/dL (8.4-10.2); Carbon Dioxide 20 mmol/L (22-30); Chloride 109 mmol/L (98-107); Glucose 101 mg/dL (74-99); Non-African American GFR(MDRD) >60 (>60 ml/min/1.73 sqM); Potassium 4.4 mmol/L (3.5-5.1); Sodium 140 mmol/L (137-145); Total Bilirubin 0.9 mg/dL (0.2-1.3); Total Protein 6.4 g/dL (6.3-8.2)
[2017-02-19 15:16] LABS: INR 1.1 (<1.1); Prothrombin Time 10.6 sec (9.0-12.0)
[2017-02-19 15:19] LABS: Creatine Kinase 22 U/L (30-135)
[2017-02-19 15:21] LABS: Manual Review Performed
[2017-02-19 15:32] LABS: Creatine Kinase MB <0.2 ng/mL (0.0-2.4); Troponin I 0.021 ng/mL (0.000-0.034)
--- NOTE | 2017-02-19 15:32 | ED ---
General Adult HPI - General Chief complaint: Shortness of Breath Stated complaint: SOB Time Seen by Provider: 02/19/17 14:21 Source: patient, family, RN notes reviewed, old records reviewed Mode of arrival: wheelchair Limitations: no limitations - History of Present Illness Initial comments: This is a 56-year-old female here for evaluation. This patient presents for evaluation of shortness of breath and chest pain. Patient does serve from [employer], was recently placed on azithromycin for impending bronchitis, shortness of breath earlier this week. Patient's progressively worsening since that event. Patient continued to complain of chest pain shortness of breath. No known fevers, no recent change in medication. - Related Data Home Medications Medication Instructions Recorded Confirmed Cholecalciferol [Vitamin D3] 1,000 unit PO DAILY 02/19/15 02/19/17 Ondansetron [Zofran] 4 mg PO Q8HR PRN 07/18/16 02/19/17 fentaNYL 100MCG/HR PATCH 1 patch TRANSDERM Q72H 07/18/16 02/19/17 [Duragesic 100MCG/HR] Docusate [Colace] 200 mg PO DAILY 08/28/16 02/19/17 Ferrous Sulfate [Feosol] 325 mg PO DAILY 11/28/16 02/19/17 oxyCODONE-APAP 10-325MG [Percocet 1 tab PO Q6HR PRN 11/28/16 02/19/17 10-325 mg] fentaNYL 25MCG/HR PATCH [Duragesic 125 mcg TRANSDERM Q72H 02/14/17 02/19/17 25MCG/HR] Capecitabine [Xeloda] 1,000 mg PO HS 02/19/17 02/19/17 Capecitabine [Xeloda] 1,500 mg PO QAM 02/19/17 02/19/17 Cyanocobalamin [Vitamin B-12] 500 mcg PO DAILY 02/19/17 02/19/17 Megestrol [Megace] 400 mg PO BID 02/19/17 02/19/17 Allergies Allergy/AdvReac Type Severity Reaction Status Date / Time No Known Allergies Allergy Verified 02/19/17 15:09 Review of Systems ROS Statement: Those systems with pertinent positive or pertinent negative responses have been documented in the HPI. ROS Other: All systems not noted in ROS Statement are negative. Past Medical History Past Medical History: Cancer Additional Past Medical History / Comment(s): liver spine neck mets primary breast cancer, History of Any Multi-Drug Resistant Organisms: None Reported Past Surgical History: Hysterectomy Additional Past Surgical History / Comment(s): Bilateral mastectomy; no iv bp on left arm, lymph node removal left side, urinary stents in August 2016 Past Anesthesia/Blood Transfusion Reactions: No Reported Reaction Additional Past Anesthesia/Blood Transfusion Reaction / Comment(s): Just received blood Past Psychological History: No Psychological Hx Reported Additional Psychological History / Comment(s): Pt lives with family in a home. Pt is independent. She still drives a car. She does not have any outside agency helping at this time. She uses no assistive devices. Smoking Status: Former smoker Past Alcohol Use History: None Reported Additional Past Alcohol Use History / Comment(s): started smoking in 1978,quit 2001.was smoking 1 ppd by the time she quit. Past Drug Use History: None Reported - Past Family History Father Family Medical History: No Reported History Mother Family Medical History: Cancer Additional Family Medical History / Comment(s): Mother of Hodgkins disease. General Exam Limitations: no limitations General appearance: alert, in no apparent distress, cachectic Head exam: Present: atraumatic, normocephalic, normal inspection Eye exam: Present: normal appearance, PERRL, EOMI. Absent: scleral icterus, conjunctival injection, periorbital swelling ENT exam: Present: normal exam, mucous membranes moist Neck exam: Present: normal inspection. Absent: tenderness, meningismus, lymphadenopathy Respiratory exam: Present: normal lung sounds bilaterally, respiratory distress , wheezes, accessory muscle use, decreased breath sounds, prolonged expiratory. Absent: rales, rhonchi, stridor Cardiovascular Exam: Present: regular rate, normal rhythm, normal heart sounds. Absent: systolic murmur, diastolic murmur, rubs, gallop, clicks GI/Abdominal exam: Present: soft, normal bowel sounds. Absent: distended, tenderness, guarding, rebound, rigid Extremities exam: Present: normal inspection, full ROM, normal capillary refill. Absent: tenderness, pedal edema, joint swelling, calf tenderness Back exam: Present: normal inspection Neurological exam: Present: alert, oriented X3, CN II-XII intact Psychiatric exam: Present: normal affect, normal mood Skin exam: Present: warm, dry, intact, normal color. Absent: rash Course Vital Signs 02/19/17 02/19/17 02/19/17 14:14 15:26 15:54 Temperature 98.9 F 99.2 F Pulse Rate 82 72 68 Respiratory 18 18 18 Rate Blood Pressure 144/76 124/72 139/78 O2 Sat by Pulse 99 100 100 Oximetry 02/19/17 02/19/17 02/19/17 16:04 16:15 16:44 Temperature 98.8 F Pulse Rate 75 78 114 H Respiratory 18 Rate Blood Pressure 111/63 O2 Sat by Pulse 99 Oximetry 02/19/17 17:57 Temperature 97.7 F Pulse Rate 103 H Respiratory 18 Rate Blood Pressure 110/57 O2 Sat by Pulse 99 Oximetry EKG Findings - EKG Comments: EKG Findings:: EKG shows normal sinus rhythm rate of 60, ND 152, QRS 68, QTC 438 Medical Decision Making - Medical Decision Making 56 female here for evaluation of severe shortness of breath, congestion and chest pain. CT negative for PE positive history of CVA, patient will be admitted for continued pulmonary and cardiology evaluation and treatment - Lab Data Result diagrams: 02/23/17 05:47 02/23/17 05:47 Lab Results 02/19/17 02/19/17 02/19/17 Range/Units 14:44 14:44 14:44 WBC 3.3 L (3.8-10.6) k/uL RBC 2.83 L (3.80-5.40) m/uL Hgb 10.3 L (11.4-16.0) gm/dL Hct 29.9 L (34.0-46.0) % MCV 105.8 H (80.0-100.0) fL MCH 36.4 H (25.0-35.0) pg MCHC 34.4 (31.0-37.0) g/dL RDW 19.6 H (11.5-15.5) % Plt Count 181 (150-450) k/uL Neutrophils % 74 % Lymphocytes % 11 % Monocytes % 9 % Eosinophils % 3 % Basophils % 0 % Neutrophils # 2.5 (1.3-7.7) k/uL Lymphocytes # 0.4 L (1.0-4.8) k/uL Monocytes # 0.3 (0-1.0) k/uL Eosinophils # 0.1 (0-0.7) k/uL Basophils # 0.0 (0-0.2) k/uL Manual Slide Review Performed Anisocytosis Slight Macrocytosis Marked PT (9.0-12.0) sec INR (<1.1) APTT (22.0-30.0) sec D-Dimer (<0.60) mg/L FEU Sodium 140 (137-145) mmol/L Potassium 4.4 (3.5-5.1) mmol/L Chloride 109 H (98-107) mmol/L Carbon Dioxide 20 L (22-30) mmol/L Anion Gap 11 mmol/L BUN 21 H (7-17) mg/dL Creatinine 0.82 (0.52-1.04) mg/dL Est GFR (MDRD) Af Amer >60 (>60 ml/min/1.73 sqM) Est GFR (MDRD) Non-Af >60 (>60 ml/min/1.73 sqM) Glucose 101 H (74-99) mg/dL Calcium 8.6 (8.4-10.2) mg/dL Total Bilirubin 0.9 (0.2-1.3) mg/dL AST 47 H (14-36) U/L ALT 44 (9-52) U/L Alkaline Phosphatase 173 H (38-126) U/L Total Creatine Kinase 22 L (30-135) U/L CK-MB (CK-2) <0.2 (0.0-2.4) ng/mL CK-MB (CK-2) Rel Index Troponin I 0.021 (0.000-0.034) ng/mL NT-Pro-B Natriuret Pep pg/mL Total Protein 6.4 (6.3-8.2) g/dL Albumin 3.6 (3.5-5.0) g/dL 02/19/17 02/19/17 Range/Units 14:44 14:44 WBC (3.8-10.6) k/uL RBC (3.80-5.40) m/uL Hgb (11.4-16.0) gm/dL Hct (34.0-46.0) % MCV (80.0-100.0) fL MCH (25.0-35.0) pg MCHC (31.0-37.0) g/dL RDW (11.5-15.5) % Plt Count (150-450) k/uL Neutrophils % % Lymphocytes % % Monocytes % % Eosinophils % % Basophils % % Neutrophils # (1.3-7.7) k/uL Lymphocytes # (1.0-4.8) k/uL Monocytes # (0-1.0) k/uL Eosinophils # (0-0.7) k/uL Basophils # (0-0.2) k/uL Manual Slide Review Anisocytosis Macrocytosis PT 10.6 (9.0-12.0) sec INR 1.1 (<1.1) APTT 23.5 (22.0-30.0) sec D-Dimer 2.56 H (<0.60) mg/L FEU Sodium (137-145) mmol/L Potassium (3.5-5.1) mmol/L Chloride (98-107) mmol/L Carbon Dioxide (22-30) mmol/L Anion Gap mmol/L BUN (7-17) mg/dL Creatinine (0.52-1.04) mg/dL Est GFR (MDRD) Af Amer (>60 ml/min/1.73 sqM) Est GFR (MDRD) Non-Af (>60 ml/min/1.73 sqM) Glucose (74-99) mg/dL Calcium (8.4-10.2) mg/dL Total Bilirubin (0.2-1.3) mg/dL AST (14-36) U/L ALT (9-52) U/L Alkaline Phosphatase (38-126) U/L Total Creatine Kinase (30-135) U/L CK-MB (CK-2) (0.0-2.4) ng/mL CK-MB (CK-2) Rel Index Troponin I (0.000-0.034) ng/mL NT-Pro-B Natriuret Pep 389 pg/mL Total Protein (6.3-8.2) g/dL Albumin (3.5-5.0) g/dL - Radiology Data Radiology results: report reviewed (CT is negative for PE), image reviewed Disposition Clinical Impression: Anxiety, Intractable back pain, Chest pain, Failure of outpatient treatment Disposition: ADMITTED IP TO THIS [facility] Condition: Fair
--- NOTE | 2017-02-19 16:51 | CT ---
EXAMINATION TYPE: CT angio chest DATE OF EXAM: 02/19/2017 4:42 PM COMPARISON: 01/13/2015 HISTORY: Patient complains of shortness of breath. CT DLP: 118.9 mGycm Automated exposure control for dose reduction was used. CONTRAST: CTA scan of the thorax is performed with IV Contrast, patient injected with 100 mL of Omnipaque 350, pulmonary embolism protocol. There are 3-D post processed images.. FINDINGS: There is some reticular interstitial infiltrate in the left upper lobe with pleural thickening. This is consistent with scarring. There is similar minimal change at the right lung apex. There is no evidence of aortic aneurysm or dissection. Heart size is normal. There is no pericardial effusion. There is no mediastinal adenopathy. There are no hilar masses. I see no filling defects in the pulmon beti arteries. Liver is small and irregular consistent with significant cirrhosis. There are multiple low density ar eas in the liver. There is ascites. IMPRESSION: No evidence of pulmonary embolism. There is mottled lucency and sclerosis in the thoracic vertebra and metastatic disease cannot be excl uded. THERE IS PLEURAL AND PULMONARY SCARRING AT THE LUNG APICES THAT HAS PROGRESSED COMPARED TO OLD CT SCA N. THERE IS EVIDENCE OF ASCITES AND HEPATIC CIRRHOSIS. THERE ARE MULTIPLE LOW-DENSITY LIVER LESIONS A ND TUMOR CANNOT BE EXCLUDED. THERE IS EVIDENCE OF BILATERAL HYDRONEPHROSIS ON THE LIMITED VIEWS OF TH E KIDNEYS.
[2017-02-19] MEDS ORDERED: ASPIRIN 81 MG CHEW PO STA (17:03)
[2017-02-19] MEDS ORDERED: NITROGLYCERIN SL TABS 0.4 MG TAB SUBLINGUAL PRN (17:03)
[2017-02-19] MEDS ORDERED: IPRATROPIUM-ALBUTEROL 3 ML NEB INHALATION PRN (17:03)
[2017-02-19] MEDS ORDERED: AZITHROMYCIN 500 MG in SODIUM CHLORIDE 0.9% 250 ML IVPB STA (17:06)
[2017-02-19] MEDS: SODIUM CHLORIDE 0.9% 1,000 ML IV SCH (17:56)
[2017-02-19 21:32] LABS: Creatine Kinase MB 0.4 ng/mL (0.0-2.4); Troponin I 0.034 ng/mL (0.000-0.034)
[2017-02-19] MEDS ORDERED: ONDANSETRON 4 MG TAB PO PRN (22:02)
[2017-02-19] MEDS: HYDROmorphone 2 MG/ML 1 ML SYRINGE IVP PRN (22:09)
[2017-02-20] MEDS ORDERED: IPRATROPIUM-ALBUTEROL 3 ML NEB INHALATION PRN (02:15)
[2017-02-20 03:50] LABS: Anisocytosis Slight; Basophils % (A) 0 %; CH 34.6; CHCM 31.2; Eosinophils % (A) 2 %; HCT 26.9 % (34.0-46.0); HDW 2.52; Hypochromasia Slight; Luc # (Auto) 0.05; Luc % (Auto) 2; Lymphocytes # (A) 0.3 k/uL (1.0-4.8); Lymphocytes % (A) 11 %; MCH 34.5 pg (25.0-35.0); MCHC 31.1 g/dL (31.0-37.0); MCV 111.1 fL (80.0-100.0); Macrocytosis Marked; Mean Platelet Volume 6.9; Monocytes # (A) 0.2 k/uL (0-1.0); Monocytes % (A) 7 %; Neutrophils # (A) 1.8 k/uL (1.3-7.7); RBC 2.42 m/uL (3.80-5.40); RDW 19.9 % (11.5-15.5); WBC 2.4 k/uL (3.8-10.6); WBC (Perox) 2.38
[2017-02-20 04:01] LABS: HGB 8.3 gm/dL (11.4-16.0)
[2017-02-20 04:03] LABS: Anion Gap 9 mmol/L; Blood Urea Nitrogen 17 mg/dL (7-17); Carbon Dioxide 20 mmol/L (22-30); Chloride 112 mmol/L (98-107); Cholesterol 135 mg/dL (<200); Glucose 98 mg/dL (74-99); HDL Cholesterol 45 mg/dL (40-60); Non-African American GFR(MDRD) >60 (>60 ml/min/1.73 sqM); Potassium 4.9 mmol/L (3.5-5.1); Sodium 141 mmol/L (137-145); Triglycerides 69 mg/dL (<150)
[2017-02-20] MEDS: HYDROmorphone 2 MG/ML 1 ML SYRINGE IVP PRN ×4 (04:10→20:08)
[2017-02-20 04:12] LABS: Creatine Kinase <20 U/L (30-135)
[2017-02-20 04:24] LABS: Creatine Kinase MB 1.1 ng/mL (0.0-2.4); Troponin I 0.022 ng/mL (0.000-0.034)
[2017-02-20 05:15] LABS: Neutrophils % (A) 78 %
[2017-02-20] MEDS: IPRATROPIUM-ALBUTEROL 3 ML NEB INHALATION SCH ×4 (08:11→19:35)
[2017-02-20] MEDS: MEGESTROL 400 MG/10 ML CUP PO SCH ×2 (08:48→20:08)
[2017-02-20] MEDS: DOCUSATE 100 MG CAP PO SCH (08:48)
[2017-02-20] MEDS: FERROUS SULFATE 325 MG TAB PO SCH (08:48)
[2017-02-20] MEDS: CHOLECALCIFEROL 1,000 UNIT TAB PO SCH (08:48)
[2017-02-20] MEDS: CYANOCOBALAMIN 500 MCG TAB PO SCH (08:48)
[2017-02-20] MEDS: ENOXAPARIN 40 MG/0.4 ML SYRINGE SQ SCH (08:48)
[2017-02-20] MEDS ORDERED: AZITHROMYCIN 500 MG in SODIUM CHLORIDE 0.9% 250 ML IVPB SCH (09:00)
[2017-02-20] MEDS ORDERED: CAPECITABINE 1500 MG PO SCH (09:00)
[2017-02-20] MEDS: SODIUM CHLORIDE 0.9% 1,000 ML IV SCH ×2 (09:19→16:08)
[2017-02-20] MEDS: ASPIRIN 325 MG TAB PO SCH (09:23)
[2017-02-20 13:28] VITALS: BMI 17.4
--- NOTE | 2017-02-20 15:53 | HP ---
DATE OF ADMISSION: Patient is a 56-year-old female who came in with complaints of shortness of breath, generalized weakness. No source of infection is found and patient did have a low-grade fever. Patient is actively receiving chemotherapy for her breast cancer. Patient is admitted for sepsis. Source of infection is unknown at this point of time. Patient was complaining of cough with greenish sputum production. Patient was complaining of sore throat, although CT angiogram of the chest did not show any pneumonic infiltrate. UA will be obtained. Patient denied any chest pain to me. Patient will be started on Rocephin. Patient was given azithromycin as an outpatient for her URI-like symptoms, without any significant improvement. Patient will be started on IV fluids. If patient is feeling well and patient is afebrile tomorrow, probably we can discharge her home on empiric antibiotic like Augmentin or Ceftin for about 5 to 7 days if no other source of infection is appreciated. I am obtaining a UA and urine culture, as mentioned above. REVIEW OF SYSTEMS: GENERAL: As described in HPI. CONSTITUTIONAL: No fever, no malaise, no fatigue. HEENT: No recent visual problems or hearing problems. Denied any sore throat. CARDIOVASCULAR: No chest pain, orthopnea, PND, no palpitations, no syncope. PULMONARY: As described in HPI. GASTROINTESTINAL: No diarrhea, no nausea, no vomiting, no abdominal pain. Normoactive bowel sounds. NEUROLOGICAL: No headaches, no weakness, no numbness. HEMATOLOGICAL: Denies any bleeding or petechiae. GENITOURINARY: Denies any burning micturition, frequency, or urgency. MUSCULOSKELETAL/RHEUMATOLOGICAL: Denies any joint pain, swelling, or any muscle pain. ENDOCRINE: Denies any polyuria or polydipsia. The rest of the 14 point review of systems is negative. Past medical history is significant for: 1. Breast cancer with metastases. 2. Hysterectomy. SOCIAL HISTORY: Former smoker. Quit smoking in 2001. Denied any alcohol abuse or any drug abuse. FAMILY HISTORY: Mother of Hodgkin's lymphoma. PHYSICAL EXAMINATION: VITAL SIGNS: Temperature 98.6, pulse of 60, respiratory rate of 16. Blood pressure is 129/71. Saturating at 92% on room air. GENERAL: Very thin built female. Alert and oriented x3. Does have generalized weakness and malaise from cancer cachexia. HEENT: Pupils are round and equally reacting to light. EOMI. No scleral icterus. No conjunctival pallor. Normocephalic, atraumatic. No pharyngeal erythema. No thyromegaly. CARDIOVASCULAR: S1 and S2 present. No murmurs, rubs, or gallops. PULMONARY: Chest is clear to auscultation, no wheezing or crackles. ABDOMEN: Soft, nontender, nondistended, normoactive bowel sounds. No palpable organomegaly. MUSCULOSKELETAL: No joint swelling or deformity. EXTREMITIES: No cyanosis, clubbing, or pedal edema. NEUROLOGICAL: Gross neurological examination did not reveal any focal deficits. SKIN: No rashes. LABORATORY DATA: Patient did not have any leukocytosis. Hemoglobin is down to 8.3, probably because of IV fluid resuscitation. Patient's creatinine is around 0.9, chloride of 112, because of which I will start her on lactated Ringer's. Discontinue normal saline. CT angiogram of the chest as mentioned above. UA will be obtained. ASSESSMENT AND PLAN: 1. Sepsis and fever with no appreciable source. Empiric antibiotics, as mentioned above. Further management as mentioned above. Urinalysis and urine culture will be obtained. 2. History of bilateral ureteral stents in the past. 3. Metastatic breast cancer, for which patient is actively receiving chemotherapy. Patient normally follows in [facility] in [place], [place]. 4. Severe cancer cachexia. 5. Moderate to severe protein-calorie malnutrition from cancer cachexia. Further management and plan as mentioned in the interval history. Patient is on DVT prophylaxis and patient will also need GI prophylaxis at this time.
[2017-02-20] MEDS: LACTATED RINGERS 1,000 ML IV SCH (16:20)
--- NOTE | 2017-02-20 17:01 | P.CONS ---
History of Present Illness - Reason for Consult Consult date: 02/20/17 treatment for metastatic breast cancer Requesting physician: Morris Stanley - Chief Complaint DEWAYNE - History of Present Illness Debo is a verpy pleasant female pt of Dr. Watts and very well know to the practice. 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 She did well until August 2011 when she developed invasive lobular carcinoma of the left breast. She had bilateral mastectomies with left axillary node resection, pathology multifocal invasive lobular carcinoma, largest foci was 5cm, 1 left axillary node positive for macrometastasis and 2 had isolated tumor cells, ER/NY + and HER2/JORGE A negative by FISH. She completed 6 cycles of adjuvant taxotere and cytoxan on 01/17/2012 , then completed radiation therapy in April 2012, then placed on oral tamoxifen. Pt was followed and monitored, with testing and follow up negative for metastatic disease. She was seen 12/11/2014 at [facility] because of right sided chest pain, CT chest revealed multiple small foci of radiolucent bony lesions and multiple small liver lesions suspicious for metastatic disease, CT of cervical spine revealed multiple small foci of vertebral metastasis, CT AP revealed multiple liver lesions, bone scan confirmed diffuse skeletal metastasis. She was started on second line hormonal therapy so she was enrolled on S1222 clinical trial, she was randomized to faslodex/everolimus/ placebo, bisphosphonate therapy initiated. Treatment follow up CT CAP 2014 revealed stable disease. MRI of thoracic and lumbar spine done in April 2015 revealed bone metastasis without cord compression. She continued on the study until the study was closed 10/13/2015, CT CAP revealed evidence of progression of liver metastasis. She started ibrance and continued femara on . Treatment follow up CT CAP and bone scan on 12/25/2015 revealed stable disease and slight improvement in liver lesions. Follow up CT CAP 2015 revealed relatively stable disease. She unfortunately developed progressive subcutaneous skin lesions, she was started on weekly taxol on 2015. CT CAP on 07/05/2016 revealed evidence of disease progression in the liver with ascites and hydronephrosis, taxol was discontinued 06/29/2016. Pt required ureteral stent, placed 07/20/16. Pt started AC 07/28/16. She had 3 cycles with hospitalizations after each dose due to side effects and neutropenic complications. CT CAP 08/30/2016 revealed stable disease but ascites from liver cirrhosis was worse. She was referred to [facility] for clinical trials but not felt to be a candidate. She started xeloda on 12/09/2016 and has done well since. She is due for treatment follow up imaging 02/28. Pt states she has been feeling pretty good, last week she was having cough and was started on abx but the cough progressed, she became SOB and was having DEWAYNE, she denied any fevers, oral irritation, nausea, vomiting, hemoptysis, she is having difficulty bringing phelgm up, her appetite is decent-she states she has gained a few pounds- no abd pain, diarrhea, skin toxicities, she states good pain control at this time. She would be due to complete her xeloda cycle this . Review of Systems All systems: negative Constitutional: Reports as per HPI Past Medical History Past Medical History: Cancer Additional Past Medical History / Comment(s): liver spine neck mets primary breast cancer, History of Any Multi-Drug Resistant Organisms: None Reported Past Surgical History: Hysterectomy Additional Past Surgical History / Comment(s): Bilateral mastectomy; no iv bp on left arm, lymph node removal left side, urinary stents in August 2016 Past Anesthesia/Blood Transfusion Reactions: No Reported Reaction Additional Past Anesthesia/Blood Transfusion Reaction / Comm: Just received blood Past Psychological History: No Psychological Hx Reported Additional Psychological History / Comment(s): Pt lives with family in a home. Pt is independent. She still drives a car. She does not have any outside agency helping at this time. She uses no assistive devices. Smoking Status: Former smoker Past Alcohol Use History: None Reported Additional Past Alcohol Use History / Comment(s): started smoking in 1978,quit 2001.was smoking 1 ppd by the time she quit. Past Drug Use History: None Reported - Past Family History Father Family Medical History: No Reported History Mother Family Medical History: Cancer Additional Family Medical History / Comment(s): Mother of Hodgkins disease. Medications and Allergies Home Medications Medication Instructions Recorded Confirmed Type Cholecalciferol [Vitamin D3] 1,000 unit PO DAILY 02/19/15 02/19/17 History Ondansetron [Zofran] 4 mg PO Q8HR PRN 07/18/16 02/19/17 History fentaNYL 100MCG/HR PATCH 1 patch TRANSDERM Q72H 07/18/16 02/19/17 History [Duragesic 100MCG/HR] Docusate [Colace] 200 mg PO DAILY 08/28/16 02/19/17 History Ferrous Sulfate [Feosol] 325 mg PO DAILY 11/28/16 02/19/17 History oxyCODONE-APAP 10-325MG [Percocet 1 tab PO Q6HR PRN 11/28/16 02/19/17 History 10-325 mg] fentaNYL 25MCG/HR PATCH [Duragesic 125 mcg TRANSDERM Q72H 02/14/17 02/19/17 History 25MCG/HR] Capecitabine [Xeloda] 1,000 mg PO HS 02/19/17 02/19/17 History Capecitabine [Xeloda] 1,500 mg PO QAM 02/19/17 02/19/17 History Cyanocobalamin [Vitamin B-12] 500 mcg PO DAILY 02/19/17 02/19/17 History Megestrol [Megace] 400 mg PO BID 02/19/17 02/19/17 History Allergies Allergy/AdvReac Type Severity Reaction Status Date / Time No Known Allergies Allergy Verified 02/19/17 15:09 Physical Exam Vitals: Vital Signs Temp Pulse Pulse Resp BP BP Pulse Ox 02/20/17 11:13 98.6 F 68 16 129/71 100 02/20/17 08:22 60 02/20/17 08:13 60 02/20/17 08:00 97.7 F 88 16 111/60 100 02/20/17 04:05 98.4 F 59 L 18 140/61 99 02/19/17 23:30 97.6 F 68 18 100/56 99 02/19/17 20:45 100.0 F H 75 18 94/55 99 02/19/17 18:15 98.8 F 89 18 117/64 100 02/19/17 17:57 97.7 F 103 H 18 110/57 99 Intake and Output 02/19/17 02/20/17 02/20/17 22:59 06:59 14:59 Intake Total 200 1400 Balance 200 1400 Intake: Intake, IV Titration 1200 Amount Sodium Chloride 0.9% 1, 1200 000 ml @ 100 mls/hr IV . Q10H [facility] Rx#:[id number] Oral 200 200 Other: Voiding Method Toilet Toilet # Voids 1 1 Weight 44.452 kg 46 kg - Constitutional General appearance: cooperative, mild distress, thin - EENT Eyes: anicteric sclerae, PERRLA, normal appearance ENT: normal oropharynx - Neck Neck: no lymphadenopathy - Respiratory Respiratory: bilateral: rhonchi - Cardiovascular Rhythm: regular Heart sounds: normal: S1, S2 leg Peripheral Edema: bilateral: None - Gastrointestinal General gastrointestinal: no absent bowel sounds, no decreased bowel sounds, no distended, no hepatomegaly, no hyperactive bowel sounds, normal bowel sounds, no organomegaly, no rigid, no scaphoid, soft, no splenomegaly, no tenderness, no umbilical hernia, no ventral hernia - Integumentary Pt has numerous SQ malignant nodules, stable from previous exams - Neurologic Neurologic: CNII-XII intact - Musculoskeletal Musculoskeletal: strength equal bilaterally - Psychiatric Psychiatric: A&O x's 3, appropriate affect, intact judgment & insight Results CBC & Chem 7: 02/20/17 03:34 02/20/17 03:34 Labs: Abnormal Lab Results - Last 24 Hours (Table) 02/19/17 02/20/17 02/20/17 Range/Units 20:42 03:34 03:34 WBC (3.8-10.6) k/uL RBC (3.80-5.40) m/uL Hgb (11.4-16.0) gm/dL Hct (34.0-46.0) % MCV (80.0-100.0) fL RDW (11.5-15.5) % Lymphocytes # (1.0-4.8) k/uL Chloride 112 H (98-107) mmol/L Carbon Dioxide 20 L (22-30) mmol/L Calcium 8.0 L (8.4-10.2) mg/dL Total Creatine Kinase 21 L <20 L (30-135) U/L 02/20/17 Range/Units 03:34 WBC 2.4 L (3.8-10.6) k/uL RBC 2.42 L (3.80-5.40) m/uL Hgb 8.3 L D (11.4-16.0) gm/dL Hct 26.9 L (34.0-46.0) % MCV 111.1 H D (80.0-100.0) fL RDW 19.9 H (11.5-15.5) % Lymphocytes # 0.3 L (1.0-4.8) k/uL Chloride (98-107) mmol/L Carbon Dioxide (22-30) mmol/L Calcium (8.4-10.2) mg/dL Total Creatine Kinase (30-135) U/L CT scan - chest: report reviewed Assessment and Plan (1) Breast cancer Narrative/Plan: Pt will hold Xeloda while she is inpatient and completes treatment for URI Pt has imaging sched for 9 days from now. No need at this time to change any appts. Will monitor pt progress while inpatient. Status: Acute
[2017-02-20 17:17] LABS: Appearance,Urine Clear (Clear); Bilirubin,Urine Negative (Negative); Glucose,Urine (UA) Negative (Negative); Ketones,Urine Negative (Negative); Leukocyte Esterase,Urine Moderate (Negative); Mucus,Urine Rare /hpf; Nitrite,Urine Negative (Negative); PH, Urine 6.5 (5.0-8.0); Particle Count 1642; Protein,Urine Trace (Negative); RBC,Urine 53 /hpf (0-5); Squamous Epithelial Cell,Urine 1 /hpf (0-4); UA Billing (MACRO vs. MICRO) MICRO; Urobilinogen,Urine <2.0 mg/dL (<2.0); WBC,Urine 21 /hpf (0-5)
[2017-02-20] MEDS ORDERED: CALCIUM CARBONATE 500 MG CHEWABLE PO PRN (18:13)
[2017-02-20] MEDS ORDERED: NON-FORMULARY DRUG (Capecitabine [Xeloda] 1,000 MG) PO SCH (21:00)
[2017-02-21] MEDS: HYDROmorphone 2 MG/ML 1 ML SYRINGE IVP PRN ×4 (04:21→19:24)
[2017-02-21] MEDS: LACTATED RINGERS 1,000 ML IV SCH ×2 (04:24→20:45)
[2017-02-21] MEDS: oxyCODONE-APAP 10-325MG 1 EACH TAB PO PRN ×3 (06:33→22:42)
[2017-02-21 06:51] LABS: Anisocytosis Moderate; CH 35.6; CHCM 32.3; HCT 25.9 % (34.0-46.0); HDW 2.45; HGB 8.1 gm/dL (11.4-16.0); MCH 34.6 pg (25.0-35.0); MCHC 31.3 g/dL (31.0-37.0); MCV 110.4 fL (80.0-100.0); Macrocytosis Marked; Mean Platelet Volume 7.6; RBC 2.35 m/uL (3.80-5.40); RDW 20.4 % (11.5-15.5); WBC 2.3 k/uL (3.8-10.6)
[2017-02-21 07:02] LABS: Anion Gap 6 mmol/L; Blood Urea Nitrogen 15 mg/dL (7-17); Calcium 8.6 mg/dL (8.4-10.2); Carbon Dioxide 24 mmol/L (22-30); Chloride 107 mmol/L (98-107); Glucose 95 mg/dL (74-99); Non-African American GFR(MDRD) >60 (>60 ml/min/1.73 sqM); Potassium 4.8 mmol/L (3.5-5.1); Sodium 137 mmol/L (137-145)
[2017-02-21] MEDS ORDERED: AZITHROMYCIN 500 MG TAB PO SCH (09:00)
[2017-02-21] MEDS: ACETAMINOPHEN TAB 325 MG TAB PO PRN ×2 (09:04→20:49)
[2017-02-21] MEDS: MEGESTROL 400 MG/10 ML CUP PO SCH ×2 (09:05→22:42)
[2017-02-21] MEDS: ASPIRIN 325 MG TAB PO SCH (09:08)
[2017-02-21] MEDS: CYANOCOBALAMIN 500 MCG TAB PO SCH (09:09)
[2017-02-21] MEDS: FERROUS SULFATE 325 MG TAB PO SCH (09:09)
[2017-02-21] MEDS: CHOLECALCIFEROL 1,000 UNIT TAB PO SCH (09:09)
[2017-02-21] MEDS: ENOXAPARIN 40 MG/0.4 ML SYRINGE SQ SCH (09:09)
[2017-02-21] MEDS: DOCUSATE 100 MG CAP PO SCH (09:09)
[2017-02-21] MEDS: LORATADINE-PSEUDOEPH 5-120 MG 1 EACH TAB.ER.12H PO SCH ×2 (09:35→22:42)
[2017-02-21] MEDS: IPRATROPIUM-ALBUTEROL 3 ML NEB INHALATION SCH ×4 (10:00→19:31)
[2017-02-21] MEDS: guaiFENesin 600 MG TABLET.ER PO SCH ×2 (10:14→22:42)
[2017-02-21] MEDS ORDERED: VANCOMYCIN 1,000 MG in SODIUM CHLORIDE 0.9% 250 ML IVPB STA (15:19)
[2017-02-21] MEDS ORDERED: IV VANCOMYCIN PER PHARMACY 1 EACH MISC MISCELLANE PRN (15:19)
--- NOTE | 2017-02-21 15:40 | XR ---
EXAMINATION TYPE: XR chest 1V portable DATE OF EXAM: 02/21/2017 3:33 PM COMPARISON: 12/05/2016 INDICATION: Pneumonia TECHNIQUE: Single frontal view of the chest is obtained. FINDINGS: The heart size is normal. The pulmonary vasculature is normal. The lungs are clear. There is a port present on the right with the tip in the superior vena cava region. IMPRESSION: 1. No acute pulmonary process.
--- NOTE | 2017-02-21 17:33 | P.PN ---
Subjective Principal diagnosis: SOB, DEWAYNE Pt seen this AM in follow up, she actually feels worse today then yesterday, she is c/o severe sinus and chest congestion, she has productive cough and copious green mucus when blowing her nose. Objective - Vital Signs Vital signs: Vital Signs Temp 98.7 F 02/21/17 15:00 Pulse 84 02/21/17 15:34 Resp 18 02/21/17 15:00 BP 123/68 02/21/17 15:00 Pulse Ox 99 02/21/17 15:00 Intake & Output 02/20/17 02/21/17 02/21/17 18:59 06:59 18:59 Intake Total 120 800 625 Balance 120 800 625 Weight 46 kg 48 kg Intake: IV 600 525 Lactated Ringers 1,000 ml 600 525 @ 75 mls/hr IV .[id number] [facility] Rx#:[id number] Intake, IV Titration 100 Amount cefTRIAXone 1,000 mg In 100 Sodium Chloride 0.9% 50 ml @ 100 mls/hr IVPB Q24HR [facility] Rx#:[id number] Oral 120 200 Other: Voiding Method Toilet # Voids 1 1 - Constitutional General appearance: Present: cooperative, no acute distress, thin - EENT Eyes: Present: anicteric sclerae ENT: Present: normal oropharynx - Respiratory Respiratory: bilateral: diminished - Cardiovascular Heart sounds: normal: S1, S2 - Peripheral edema leg Peripheral Edema: bilateral: None - Gastrointestinal General gastrointestinal: Present: normal bowel sounds, soft - Neurologic Neurologic: Present: CNII-XII intact - Musculoskeletal Musculoskeletal: Present: strength equal bilaterally - Psychiatric Psychiatric: Present: A&O x's 3, appropriate affect, intact judgment & insight - Labs CBC & Chem 7: 02/21/17 06:35 02/21/17 06:35 Labs: Abnormal Lab Results - Last 24 Hours (Table) 02/21/17 Range/Units 06:35 WBC 2.3 L (3.8-10.6) k/uL RBC 2.35 L (3.80-5.40) m/uL Hgb 8.1 L (11.4-16.0) gm/dL Hct 25.9 L (34.0-46.0) % MCV 110.4 H (80.0-100.0) fL RDW 20.4 H (11.5-15.5) % Plt Count 134 L (150-450) k/uL Microbiology - Last 24 Hours (Table) 02/19/17 22:41 Blood Culture - Preliminary Blood No Growth after 24 hours 02/19/17 22:17 Blood Culture - Preliminary Blood No Growth after 24 hours 02/20/17 12:00 Group A Strep Throat Culture - Preliminary Throat 02/20/17 15:15 Urine Culture - Preliminary Urine,Clean Catch - Imaging and Cardiology Chest x-ray: report reviewed Assessment and Plan (1) Breast cancer Narrative/Plan: Pt will hold Xeloda while she is inpatient and until she completes treatment for URI Imaging sched for 8 days from now. Status: Acute Plan: Cont supportive care and abx, pt being followed by IM.
--- NOTE | 2017-02-21 18:49 | PN ---
DATE OF SERVICE: 02/21/2017 This 56-year-old woman who was admitted with neutropenic sepsis in the setting of chemotherapy for metastatic breast cancer is being closely monitored. Patient is complaining of facial burning as well as symptoms of occasional cough and sputum. The patient started on broad-spectrum IV antibiotics. Cultures are negative so far. Multiple consultants are following the patient closely. White count is 2.3. The patient also has evidence of pancytopenia. Influenza is negative. Group A strep is also negative. Past medical history reviewed. REVIEW OF SYSTEMS: HEENT: As mentioned earlier. CARDIOVASCULAR SYSTEM: No angina, palpitations. RESPIRATORY SYSTEM: As mentioned earlier. GI: No nausea. : No dysuria. NERVOUS SYSTEM: No numbness, weakness. Current medications are reviewed and include: 1. Tylenol 650 q.6 p.r.n. 2. DuoNeb q.i.d. and p.r.n. 3. Aspirin. 4. Zithromax 500 mg daily. 5. Rocephin 1 gram daily. 6. Vitamin D3. 7. Vitamin B12. 8. Colace 200 mg. 9. Lovenox 40 mg subcutaneously daily. 10. Duragesic patch. 11. Fentanyl patch 25 mg q.72 hours. 12. Iron sulfate 325 mg daily. 13. Mucinex 600 mg b.i.d. 14. Dilaudid 2 mg q.4 p.r.n. 15. Lactated Ringers. 16. Megace. 17. Nitrostat. 18. Zofran. 19. Oxycodone. PHYSICAL EXAMINATION: Alert and oriented x3. Pulse is 94, blood pressure 115/71, respiration 18, temperature 100.1, pulse ox 98% on room air. HEENT: Conjunctivae normal. Oral mucosa moist. NECK: No jugular venous distention. No carotid bruit. No lymph node enlargement. CARDIOVASCULAR SYSTEM: S1, S2 muffled. RESPIRATORY SYSTEM: Breath sounds diminished at the bases. Bilateral scattered rhonchi and crackles. ABDOMEN: Soft, non-tender. No mass palpable. LEGS: No edema. No swelling. NERVOUS SYSTEM: Higher functions as mentioned earlier. Moves all 4 limbs. No focal motor or sensory deficit. LYMPHATICS: No lymph node palpable in neck, axillae or groin. SKIN: No ulcer, rash, bleeding. LABS: WBC 2.3, hemoglobin 8.1, platelets 134. UA noted. ASSESSMENT: 1. Neutropenic sepsis and fever, on empiric IV antibiotics. 2. Continued fever. 3. History of bilateral ureteral stents in the past. 4. Metastatic breast cancer, on chemotherapy. 5. Moderate to severe protein-calorie malnutrition with a body mass index of 18.2. 6. Hematuria. 7. Pancytopenia secondary to chemotherapy. 8. Leukopenia and anemia. 9. History of bilateral mastectomy. 10. Gait dysfunction. 11. Remote history of nicotine dependence. 12. NO CODE, NO CPR, NO VENT. RECOMMENDATIONS AND DISCUSSION: In this 56-year-old woman who presented with multiple complex medical issues, we will monitor the patient closely, continue the current medications, continue with symptoms treatment. Will continue with empiric antibiotics. I would expand antibiotic coverage to include broad-spectrum antibiotics. Otherwise, continue to monitor. A chest CTA was done which showed some scarring and multiple lesions suggestive of metastasis also. There is no pulmonary embolism. Once again, the prognosis is guarded. Further recommendations to follow. DVT prophylaxis. MTDD
[2017-02-21] MEDS: CEFEPIME 2 GM in SODIUM CHLORIDE 0.9% 50 ML IVPB SCH (19:29)
[2017-02-22] MEDS: CEFEPIME 2 GM in SODIUM CHLORIDE 0.9% 50 ML IVPB SCH ×3 (00:56→21:35)
[2017-02-22 01:00] VITALS: RESP 16
[2017-02-22] MEDS: VANCOMYCIN 750 MG in SODIUM CHLORIDE 0.9% 250 ML IVPB SCH ×2 (06:02→17:10)
[2017-02-22] MEDS: oxyCODONE-APAP 10-325MG 1 EACH TAB PO PRN ×2 (06:09→19:43)
[2017-02-22] MEDS: IPRATROPIUM-ALBUTEROL 3 ML NEB INHALATION SCH ×4 (07:09→22:03)
[2017-02-22] MEDS: HYDROmorphone 2 MG/ML 1 ML SYRINGE IVP PRN ×2 (08:23→17:14)
[2017-02-22] MEDS: FERROUS SULFATE 325 MG TAB PO SCH (08:24)
[2017-02-22] MEDS: guaiFENesin 600 MG TABLET.ER PO SCH ×2 (08:24→21:35)
[2017-02-22] MEDS: CHOLECALCIFEROL 1,000 UNIT TAB PO SCH (08:24)
[2017-02-22] MEDS: CYANOCOBALAMIN 500 MCG TAB PO SCH (08:24)
[2017-02-22] MEDS: DOCUSATE 100 MG CAP PO SCH (08:25)
[2017-02-22] MEDS: LORATADINE-PSEUDOEPH 5-120 MG 1 EACH TAB.ER.12H PO SCH ×2 (08:25→22:48)
[2017-02-22] MEDS: ENOXAPARIN 40 MG/0.4 ML SYRINGE SQ SCH (08:25)
[2017-02-22] MEDS: ASPIRIN 325 MG TAB PO SCH (08:25)
[2017-02-22] MEDS: MEGESTROL 400 MG/10 ML CUP PO SCH ×2 (08:25→21:35)
[2017-02-22 11:31] LABS: Anisocytosis Slight; Basophils % (A) 0 %; CH 35.3; CHCM 33.2; Eosinophils # (A) 0.1 k/uL (0-0.7); Eosinophils % (A) 3 %; HCT 24.9 % (34.0-46.0); HDW 2.55; HGB 8.4 gm/dL (11.4-16.0); Luc # (Auto) 0.06; Luc % (Auto) 3; Lymphocytes # (A) 0.2 k/uL (1.0-4.8); Lymphocytes % (A) 8 %; MCH 36.1 pg (25.0-35.0); MCHC 33.8 g/dL (31.0-37.0); MCV 106.8 fL (80.0-100.0); Macrocytosis Marked; Mean Platelet Volume 7.9; Monocytes # (A) 0.2 k/uL (0-1.0); Monocytes % (A) 7 %; Neutrophils # (A) 1.8 k/uL (1.3-7.7); Neutrophils % (A) 80 %; RBC 2.33 m/uL (3.80-5.40); RDW 19.8 % (11.5-15.5); WBC 2.3 k/uL (3.8-10.6); WBC (Perox) 2.38
[2017-02-22 11:32] LABS: Anion Gap 10 mmol/L; Blood Urea Nitrogen 16 mg/dL (7-17); Calcium 9.6 mg/dL (8.4-10.2); Carbon Dioxide 22 mmol/L (22-30); Chloride 105 mmol/L (98-107); Glucose 93 mg/dL (74-99); Non-African American GFR(MDRD) >60 (>60 ml/min/1.73 sqM); Potassium 4.1 mmol/L (3.5-5.1); Sodium 137 mmol/L (137-145)
[2017-02-22 11:44] LABS: Manual Review Performed
[2017-02-22] MEDS: LACTATED RINGERS 1,000 ML IV SCH ×2 (19:43→21:31)
--- NOTE | 2017-02-22 19:54 | P.PN ---
Subjective Principal diagnosis: SOB, DEWAYNE Patient is seen today in follow-up, she is feeling better today than yesterday. She was able to get in the shower today on her own. She does have a mouth sore on her lower left gumline that is preventing her from placing her teeth and chewing, she denies any nausea or vomiting, breathing is stable, slightly improved, still has a pretty congested cough, no abdominal pain, diarrhea or constipation. Objective - Vital Signs Vital signs: Vital Signs Temp 98.3 F 02/22/17 15:00 Pulse 88 02/22/17 15:56 Resp 16 02/22/17 15:00 BP 112/75 02/22/17 15:00 Pulse Ox 100 02/22/17 15:00 Intake & Output 02/22/17 02/22/17 02/23/17 06:59 18:59 06:59 Intake Total 850 650 Balance 850 650 Weight 47.5 kg Intake: IV 600 600 Lactated Ringers 1,000 ml 600 600 @ 75 mls/hr IV .[id number] [facility] Rx#:[id number] Intake, IV Titration 50 50 Amount Cefepime 2 gm In Sodium 50 Chloride 0.9% 50 ml @ 100 mls/hr IVPB Q12HR [facility] Rx #:[id number] Cefepime 2 gm In Sodium 50 Chloride 0.9% 50 ml @ 100 mls/hr IVPB Q8HR [facility] Rx# :[id number] Oral 200 Other: Voiding Method Toilet Toilet # Voids 1 - Constitutional General appearance: Present: cooperative, no acute distress, thin - EENT EENT Comment(s): left, lower, outer gum line ulceration, approximately 4 mm in size Eyes: Present: anicteric sclerae - Respiratory Respiratory: left: rales (expiratory) - Cardiovascular Heart sounds: normal: S1, S2 - Gastrointestinal General gastrointestinal: Present: normal bowel sounds, soft - Neurologic Neurologic: Present: CNII-XII intact - Musculoskeletal Musculoskeletal: Present: strength equal bilaterally - Psychiatric Psychiatric: Present: A&O x's 3, appropriate affect, intact judgment & insight - Labs CBC & Chem 7: 02/22/17 11:10 02/22/17 11:10 Labs: Abnormal Lab Results - Last 24 Hours (Table) 02/22/17 Range/Units 11:10 WBC 2.3 L (3.8-10.6) k/uL RBC 2.33 L (3.80-5.40) m/uL Hgb 8.4 L (11.4-16.0) gm/dL Hct 24.9 L (34.0-46.0) % MCV 106.8 H (80.0-100.0) fL MCH 36.1 H (25.0-35.0) pg RDW 19.8 H (11.5-15.5) % Plt Count 130 L (150-450) k/uL Lymphocytes # 0.2 L (1.0-4.8) k/uL Microbiology - Last 24 Hours (Table) 02/21/17 16:50 Blood Culture - Preliminary Blood No Growth after 24 hours 02/20/17 12:00 Group A Strep Throat Culture - Final Throat 02/20/17 15:15 Urine Culture - Final Urine,Clean Catch 02/19/17 22:41 Blood Culture - Preliminary Blood No Growth after 48 hours 02/21/17 19:09 Urine Culture - Preliminary Urine,Clean Catch 02/19/17 22:17 Blood Culture - Preliminary Blood No Growth after 48 hours Assessment and Plan (1) Breast cancer Narrative/Plan: Pt will hold Xeloda while she is inpatient and until she completes treatment for URI treatment follow-up imaging due next week Status: Acute Plan: Cont supportive care and abx, pt being followed by IM. clotrimazole antonina ordered for oral ulceration.
[2017-02-22 21:37] LABS: Glucose,Whole Blood 131 mg/dL (75-99)
[2017-02-22] MEDS: CLOTRIMAZOLE TROCHE 10 MG TROCHE MUCOUS MEM SCH (21:37)
[2017-02-23] MEDS: VANCOMYCIN 750 MG in SODIUM CHLORIDE 0.9% 250 ML IVPB SCH ×2 (06:05→18:01)
[2017-02-23] MEDS: LACTATED RINGERS 1,000 ML IV SCH ×2 (06:05→23:36)
[2017-02-23 06:29] LABS: Anion Gap 7 mmol/L; Anisocytosis Moderate; Basophils % (A) 0 %; Blood Urea Nitrogen 18 mg/dL (7-17); CH 35.5; CHCM 32.2; Calcium 9.6 mg/dL (8.4-10.2); Carbon Dioxide 24 mmol/L (22-30); Chloride 105 mmol/L (98-107); Eosinophils # (A) 0.1 k/uL (0-0.7); Eosinophils % (A) 4 %; Glucose 98 mg/dL (74-99); HCT 25.7 % (34.0-46.0); HGB 8.2 gm/dL (11.4-16.0); Immature Gran Flag Slight; Luc # (Auto) 0.06; Luc % (Auto) 2; Lymphocytes # (A) 0.2 k/uL (1.0-4.8); Lymphocytes % (A) 7 %; MCH 35.4 pg (25.0-35.0); MCV 110.6 fL (80.0-100.0); Macrocytosis Marked; Mean Platelet Volume 7.7; Monocytes # (A) 0.2 k/uL (0-1.0); Monocytes % (A) 7 %; Neutrophils # (A) 2.2 k/uL (1.3-7.7); Neutrophils % (A) 80 %; Non-African American GFR(MDRD) >60 (>60 ml/min/1.73 sqM); Potassium 4.4 mmol/L (3.5-5.1); RBC 2.32 m/uL (3.80-5.40); RDW 20.4 % (11.5-15.5); Sodium 136 mmol/L (137-145); WBC 2.8 k/uL (3.8-10.6); WBC (Perox) 2.61
[2017-02-23] MEDS: HYDROmorphone 2 MG/ML 1 ML SYRINGE IVP PRN ×3 (06:31→23:35)
[2017-02-23 07:36] LABS: Manual Review Performed
[2017-02-23 07:38] LABS: Tear Drop Cells Present
[2017-02-23] MEDS: IPRATROPIUM-ALBUTEROL 3 ML NEB INHALATION SCH ×4 (07:52→21:32)
[2017-02-23] MEDS: ASPIRIN 325 MG TAB PO SCH (08:48)
[2017-02-23] MEDS: MEGESTROL 400 MG/10 ML CUP PO SCH ×2 (08:48→21:05)
[2017-02-23] MEDS: CYANOCOBALAMIN 500 MCG TAB PO SCH (08:48)
[2017-02-23] MEDS: CLOTRIMAZOLE TROCHE 10 MG TROCHE MUCOUS MEM SCH ×4 (08:49→21:05)
[2017-02-23] MEDS: LORATADINE-PSEUDOEPH 5-120 MG 1 EACH TAB.ER.12H PO SCH ×2 (08:49→21:05)
[2017-02-23] MEDS: FERROUS SULFATE 325 MG TAB PO SCH (08:49)
[2017-02-23] MEDS: CEFEPIME 2 GM in SODIUM CHLORIDE 0.9% 50 ML IVPB SCH ×2 (08:49→21:04)
[2017-02-23] MEDS: DOCUSATE 100 MG CAP PO SCH (08:49)
[2017-02-23] MEDS: guaiFENesin 600 MG TABLET.ER PO SCH ×2 (08:49→21:05)
[2017-02-23] MEDS: CHOLECALCIFEROL 1,000 UNIT TAB PO SCH (08:50)
[2017-02-23] MEDS: ENOXAPARIN 40 MG/0.4 ML SYRINGE SQ SCH (08:59)
--- NOTE | 2017-02-23 09:40 | PN ---
DATE OF SERVICE: 02/23/2017 This 56-year-old woman was admitted with neutropenic sepsis, is on broad-spectrum IV antibiotics. Patient is being closely monitored at this time. The white count is stable, around 2.3 and influenza is negative, cultures are also negative. The patient continues to be afebrile at this time. No chest pain, no palpitation, no fever. On exam, alert and x2. Pulse is 101, blood pressure 120/76, respirations 16, temperature 98.7, pulse ox 99% on room air. HEENT: Conjunctivae normal. CARDIOVASCULAR SYSTEM: S1, S2 muffled. LUNGS: Breath sounds diminished at the bases, a few scattered rhonchi. ABDOMEN: Soft, nontender. LEGS: No edema. No swelling. NERVOUS SYSTEM: No focal deficits. Labs are WBC is 2.3, hemoglobin 8.4, glucose 131. ASSESSMENT: 1. Neutropenic sepsis and fever, on empiric IV antibiotics. 2. Continued fever, improving. 3. History of bilateral ureter stents in the past. 4. History of metastatic breast cancer on chemotherapy. 5. History of moderate severe protein calorie malnutrition with body mass index of 18.2. 6. Hematuria. 7. Pancytopenia secondary to chemotherapy. 8. Leukopenia and anemia. 9. History of bilateral mastectomy. 10. Gait dysfunction. 11. Remote history of nicotine dependence. 12. NO CODE, NO CARDIOPULMONARY RESUSCITATION, NO VENTILATOR. RECOMMENDATION: I recommend to continue with monitoring and symptomatic treatment. Otherwise, at this time, I would recommend continue with the current medications, continue with the empiric antibiotics. Closely follow with Hematology/Oncology. Further recommendations to follow. Repeat labs.
[2017-02-23] MEDS: methylPREDNISolone SOD SUCCI 40 MG/ML 1 ML VIAL IV SCH ×2 (12:40→21:05)
[2017-02-23] MEDS: oxyCODONE-APAP 10-325MG 1 EACH TAB PO PRN ×2 (13:38→21:04)
[2017-02-23] MEDS: SYMBICORT 160-4.5 MCG INHALER INHALATION SCH (21:32)
--- NOTE | 2017-02-23 22:43 | PN ---
DATE OF SERVICE: 02/23/2017 This 56-year-old woman was admitted with neutropenic sepsis is on broad-spectrum IV antibiotics. No chest pain or palpitations. No fever. On exam, alert and oriented x3. Pulse 102, blood pressure 127/86, temperature 97.8, pulse ox 98% on room air. HEENT: Conjunctivae normal. NECK: No jugular venous distension. CARDIOVASCULAR: S1 and S2 muffled. RESPIRATORY: Breath sounds diminished in the bases. A few scattered rhonchi. No crackles. ABDOMEN: Soft, nontender. LEGS: No edema. No swelling. NERVOUS SYSTEM: Nonfocal. LABS: WBC 2.8, hemoglobin is 8.2. ASSESSMENT: 1. Neutropenic sepsis and fever on empiric IV antibiotics, improving. 2. History of bilateral ureteral stent in the past. 3. History of metastatic breast cancer on chemotherapy. 4. History moderate to severe protein-calorie malnutrition with a body mass index 18.2. 5. Hematuria. 6. Pancytopenia, secondary to chemotherapy. 7. Leukopenia and anemia. 8. History of bilateral mastectomy. 9. Gait dysfunction. 10. Remote history of nicotine dependence. 11. NO CODE, NO CARDIOPULMONARY RESUSCITATION, NO VENTILATOR. RECOMMENDATIONS AND DISCUSSION: Continue current medications. Continue symptomatic treatment. Otherwise, I would recommend continuing with empiric antibiotics, repeat labs tomorrow. Increase ambulation. Discussed with staff. Further recommendations to follow.
[2017-02-24] MEDS: VANCOMYCIN 750 MG in SODIUM CHLORIDE 0.9% 250 ML IVPB SCH (06:10)
[2017-02-24] MEDS: methylPREDNISolone SOD SUCCI 40 MG/ML 1 ML VIAL IV SCH (06:10)
[2017-02-24] MEDS: HYDROmorphone 2 MG/ML 1 ML SYRINGE IVP PRN (06:24)
[2017-02-24 06:41] LABS: Anisocytosis Slight; Basophils % (A) 0 %; CH 34.8; CHCM 32.3; Eosinophils % (A) 0 %; HCT 26.6 % (34.0-46.0); HDW 2.66; HGB 8.8 gm/dL (11.4-16.0); Luc # (Auto) 0.05; Luc % (Auto) 2; Lymphocytes # (A) 0.2 k/uL (1.0-4.8); Lymphocytes % (A) 6 %; MCH 35.9 pg (25.0-35.0); MCHC 33.2 g/dL (31.0-37.0); MCV 108.2 fL (80.0-100.0); Macrocytosis Marked; Mean Platelet Volume 7.3; Monocytes # (A) 0.1 k/uL (0-1.0); Monocytes % (A) 4 %; Neutrophils # (A) 2.6 k/uL (1.3-7.7); Neutrophils % (A) 88 %; RBC 2.46 m/uL (3.80-5.40); RDW 19.6 % (11.5-15.5); WBC 2.9 k/uL (3.8-10.6); WBC (Perox) 2.97
[2017-02-24 06:51] LABS: Anion Gap 10 mmol/L; Blood Urea Nitrogen 22 mg/dL (7-17); Calcium 9.2 mg/dL (8.4-10.2); Carbon Dioxide 22 mmol/L (22-30); Chloride 108 mmol/L (98-107); Glucose 136 mg/dL (74-99); Non-African American GFR(MDRD) >60 (>60 ml/min/1.73 sqM); Potassium 4.7 mmol/L (3.5-5.1); Sodium 140 mmol/L (137-145)
[2017-02-24 08:48] VITALS: BP 118/77; TEMP 98
[2017-02-24] MEDS: IPRATROPIUM-ALBUTEROL 3 ML NEB INHALATION SCH (08:57)
[2017-02-24] MEDS: SYMBICORT 160-4.5 MCG INHALER INHALATION SCH (08:57)
[2017-02-24] MEDS: CEFEPIME 2 GM in SODIUM CHLORIDE 0.9% 50 ML IVPB SCH (09:05)
[2017-02-24] MEDS: CLOTRIMAZOLE TROCHE 10 MG TROCHE MUCOUS MEM SCH (09:06)
[2017-02-24] MEDS: LORATADINE-PSEUDOEPH 5-120 MG 1 EACH TAB.ER.12H PO SCH (09:06)
[2017-02-24] MEDS: CHOLECALCIFEROL 1,000 UNIT TAB PO SCH (09:06)
[2017-02-24] MEDS: ENOXAPARIN 40 MG/0.4 ML SYRINGE SQ SCH (09:06)
[2017-02-24] MEDS: guaiFENesin 600 MG TABLET.ER PO SCH (09:06)
[2017-02-24] MEDS: DOCUSATE 100 MG CAP PO SCH (09:06)
[2017-02-24] MEDS: MEGESTROL 400 MG/10 ML CUP PO SCH (09:06)
[2017-02-24] MEDS: CYANOCOBALAMIN 500 MCG TAB PO SCH (09:06)
[2017-02-24] MEDS: ASPIRIN 325 MG TAB PO SCH (09:06)
[2017-02-24] MEDS: FERROUS SULFATE 325 MG TAB PO SCH (09:06)
[2017-02-24 09:26] VITALS: PULSE 96
--- NOTE | 2017-02-25 13:43 | DS ---
DATE OF ADMISSION: 02/19/2017 DATE OF DISCHARGE: 02/24/2017 FINAL DIAGNOSES: 1. Neutropenic sepsis with fever On multiple IV antibiotics, improving. 2. History of bilateral urinary stents in the past. 3. History of metastatic breast cancer on chemotherapy. 4. History of moderate severe protein calorie malnutrition with a body mass index of 18.2. 5. Hematuria. 6. Pancytopenia, secondary to chemotherapy. 7. Leukopenia and anemia. 8. History of bilateral mastectomies. 9. Gait dysfunction. 10. Remote history of nicotine dependence. 11. NO CODE, NO CARDIOPULMONARY RESUSCITATION, NO VENTILATOR. DISCHARGE DISPOSITION: Patient will be discharged in a stable condition with guarded prognosis. HISTORY OF PRESENT ILLNESS: This is a 56-year-old woman with a past medical history of multiple medical problems was admitted with neutropenic exacerbation and treated with empiric IV antibiotics. Patient was monitored closely. Otherwise, patient improved significantly. The white count has improved to 2.8, hemoglobin is 8.8. Cultures are negative so far. The patient will be discharged with the following advice: 1. Diet is cardiac. 2. Activity limited until followup. 3. Follow up with Dr. Watts as advised. 4. Follow up labs with Dr. Watts. Medications will be: 1. Augmentin 875 mg 1 p.o. b.i.d. for 5 days. 2. Xeloda 1000 mg q.h.s. 3. Resume Procardia per Oncology. 4. Vitamin D3 one thousand daily. 5. Mycelex Antonella 10 mg q.i.d. 6. Vitamin B12 five hundred mcg p.o. daily. 7. Colace 200 mg p.o. daily. 8. Iron sulfate 325 mg p.o. daily. 9. Advair 1 puff b.i.d. 10. Albuterol, Atrovent updrafts q.i.d. and p.r.n. 11. Loratadine/Pseudoeph 5/120 mg p.o. b.i.d. 12. Megace 400 mg p.o. b.i.d. 13. Ventolin patch 125 mcg q.72 hours. 14. Oxycodone 10 mg q.6 p.r.n. 15. Prednisone 40 mg daily for 3 days, 30 mg daily for 3 days, 20 mg daily 3 days, 10 mg daily for 3 days and then discontinue. Once again, the patient will be discharged in a stable condition with guarded prognosis.
== END 2017-02-24 12:25 | disposition home or self-care (01) | DRG 871 ==
LOC: EC 14:06 → 6SEL 17:03 → 5ONC 02-20 20:36
PROVIDERS: ADMIT Hospitalist; ATTEND Hospitalist
DX: A41.9 Sepsis, unspecified organism (principal); D61.810 Antineoplastic chemotherapy induced pancytopenia; E43 Unspecified severe protein-calorie malnutrition; R64 Cachexia; C78.7 Secondary malignant neoplasm of liver and intrahepatic bile duct; C79.51 Secondary malignant neoplasm of bone; R18.8 Other ascites; Z68.1 Body mass index [BMI] 19.9 or less, adult; C50.919 Malignant neoplasm of unspecified site of unspecified female breast; D70.3 Neutropenia due to infection; K74.60 Unspecified cirrhosis of liver; R31.9 Hematuria, unspecified; T45.1X5A Adverse effect of antineoplastic and immunosuppressive drugs, initial encounter; Z17.0 Estrogen receptor positive status [ER+]; Z79.810 Long term (current) use of selective estrogen receptor modulators (SERMs); Z80.7 Family history of other malignant neoplasms of lymphoid, hematopoietic and related tissues; Z86.73 Personal history of transient ischemic attack (TIA), and cerebral infarction without residual deficits; Z87.891 Personal history of nicotine dependence; Z90.13 Acquired absence of bilateral breasts and nipples; Z92.3 Personal history of irradiation; Z79.899 Other long term (current) drug therapy; R26.9 Unspecified abnormalities of gait and mobility
CPT/HCPCS: 36415; 71010; 71275; 80048; 80053; 80061; 80202; 81001; 82550; 82553; 83880; 84484; 85025; 85027; 85379; 85610; 85730; 87040; 87070; 87081; 87086; 87205; 87430; 87502; 93005; 94640; 94760

== ENCOUNTER → 2017-02-28 | Outpatient (CLI) | payer MEDICARE ==
[2017-02-28 14:10] LABS: Blood Urea Nitrogen 23 mg/dL (7-17); Non-African American GFR(MDRD) 60 (>60 ml/min/1.73 sqM)
--- NOTE | 2017-02-28 22:17 | CT ---
EXAMINATION TYPE: CT ChestAbdPelvis w con DATE OF EXAM: 02/28/2017 2:56 PM COMPARISON: CTA chest February 19, 2017. CT abdomen and pelvis November 28, 2016. HISTORY: Breast CA with mets CT DLP: 412.3 mGycm. Automated Exposure Control for Dose Reduction was Utilized. CONTRAST: CT scan of the thorax, abdomen and pelvis is performed with oral and with IV Contrast, patient inject ed with 100 mL of Omnipaque 300. FINDINGS: LUNGS: Moderate apical scarring is redemonstrated bilaterally. There is slightly more prominent massl betsy scarring anteriorly involving the left upper lobe that is felt stable. Remainder of lungs are manuela ar. No pleural effusion or pneumothorax is seen bilaterally. No suspicious new parenchymal nodule or mass is present bilaterally. MEDIASTINUM: There are no greater than 1 cm hilar or mediastinal lymph nodes. No cardiomegaly is se en. There is stable small pericardial effusion anteriorly near axial image 38 OTHER: There is redemonstration of right-sided internal jugular Mediport catheter with tip in SVC. Bi lateral mastectomy is noted. LIVER/GB: There is redemonstration of heterogeneous shrunken lobulated liver with surrounding ascites . Finding is consistent with pseudocirrhosis appearance likely on basis of diffuse metastatic disease . There is patent but dilated portal vein at 16 mm towards the hilum PANCREAS: No significant abnormality is seen. SPLEEN: Spleen remains borderline at 12.2 cm on axial image 52 with some surrounding ascites. ADRENALS: No significant abnormality is seen. KIDNEYS: There are bilateral double-J ureter stents redemonstrated. There is delayed excretion in the left kidney noted. There is mild to moderate right-sided pyelocaliectasis and moderate to severe lef t-sided pyelocaliectasis despite stent placement that remains present. BOWEL: Oral contrast does not reach colonic level making evaluation suboptimal. There is no suspiciou s small or large bowel dilatation. There is prominence of fecal material throughout the colon. GENITAL ORGANS: Uterus is surgically absent or markedly atrophic in appearance. LYMPH NODES: No greater than 1cm abdominal or pelvic lymph nodes are appreciated. OSSEOUS STRUCTURES: Innumerable diffuse sclerotic metastatic lesions are redemonstrated without signi ficant interval change. In addition focal lytic lesion right iliac crest on coronal image 42 is redem onstrated.. OTHER: There is moderate amount of pelvic ascites redemonstrated in the cul-de-sac. There is interval improvement in diffuse abdominal ascites. IMPRESSION: 1. Diffuse osseous metastatic disease redemonstrated felt stable. Shrunken liver with heterogeneous h ypodense lesions likely reflective of diffuse metastatic involvement or pseudocirrhosis appearance is redemonstrated felt stable. Underlying portal hypertension is difficult to exclude. There is interva l improvement in severe abdominal ascites suggesting interval paracentesis. No new masses or adenopat hy are present. 2. Fairly moderate to severe diffuse colonic fecal stasis. No overall bowel obstruction. 3. Mild to moderate right-sided hydronephrosis redemonstrated despite ureter stent placement felt sta ble. There is more moderate to severe left-sided hydronephrosis seen felt more prominent with delayed excretion noted. Position of the catheter appears satisfactory on CT. Consider functional study eval uation suggest nuclear medicine exam to assess patency.
== END ==
LOC: RADPROMAIN 13:22
PROVIDERS: ATTEND Internal Medicine Hematology & Oncology
DX: C79.51 Secondary malignant neoplasm of bone (principal); C50.919 Malignant neoplasm of unspecified site of unspecified female breast; N13.30 Unspecified hydronephrosis
CPT/HCPCS: 82565; 84520; 71260; 74177; Q9967

== ENCOUNTER → 2017-03-28 | Outpatient (CLI) | payer MEDICARE ==
[2017-03-28 10:14] VITALS: BP 110/64; PULSE 91; RESP 18; TEMP 99
== END | disposition home or self-care (01) ==
LOC: PROCWHC3 09:51
PROVIDERS: ATTEND Internal Medicine Hematology & Oncology
DX: C79.51 Secondary malignant neoplasm of bone (principal); C50.919 Malignant neoplasm of unspecified site of unspecified female breast
CPT/HCPCS: 96365; J1642; J3489

== ENCOUNTER → 2017-05-16 | Outpatient (CLI) | payer MEDICARE ==
[~2017-05-16] MED LIST changes: +ZOLEDRONIC ACID 4 MG in SODIUM CHLORIDE 0.9% 100 ML IV NR; -ZOLEDRONIC ACID 4 MG in SODIUM CHLORIDE 0.9% 100 ML IV ONE
[2017-05-16 14:34] VITALS: BP 122/69; PULSE 56; RESP 16; TEMP 98.1
== END | disposition home or self-care (01) ==
LOC: PROCWHC3 14:16
PROVIDERS: ATTEND Internal Medicine Hematology & Oncology
DX: C50.919 Malignant neoplasm of unspecified site of unspecified female breast (principal); C79.51 Secondary malignant neoplasm of bone
CPT/HCPCS: 96365; J3489

== ENCOUNTER → 2017-06-13 | Outpatient (CLI) | payer MEDICARE ==
--- NOTE | 2017-06-13 11:14 | CT ---
EXAMINATION TYPE: CT ChestAbdPelvis wo con DATE OF EXAM: 06/13/2017 COMPARISON: 02/28/2017 HISTORY: breast CA CT DLP: 765 mGycm. Automated Exposure Control for Dose Reduction was Utilized. TECHNIQUE: CT scan of the thorax, abdomen and pelvis is performed without IV contrast. FINDINGS: LUNGS: Moderate apical scarring is redemonstrated bilaterally. There is slightly more prominent massl betsy scarring anteriorly involving the left upper lobe that is felt stable. Remainder of lungs are manuela ar. No pleural effusion or pneumothorax is seen bilaterally. There is a 3 mm apical pulmonary nodule on the right neck clearly depicted on previous exam. MEDIASTINUM: There are no greater than 1 cm hilar or mediastinal lymph nodes. No cardiomegaly is seen . There is stable small pericardial effusion anteriorly OTHER: There is redemonstration of right-sided internal jugular Mediport catheter with tip in SVC. Bi lateral mastectomy is noted. LIVER/GB: There is redemonstration of heterogeneous shrunken lobulated liver with surrounding ascites lack of contrast limits assessment for size of hepatic lesions but there does appear to be multiple hypodense lesions which are stable. Small amount of adjacent ascites appears stable. PANCREAS: No significant abnormality is seen. SPLEEN: Spleen remains borderline at 12.2 cm on axial image 52 with some surrounding ascites. ADRENALS: No significant abnormality is seen. KIDNEYS: There are bilateral double-J ureter stents redemonstrated. There is mild right- sided pyelo caliectasis and moderate left-sided pyelocaliectasis despite stent placement that remains present. F indings stable. BOWEL: Bowel gas pattern nonspecific without obstruction. GENITAL ORGANS: Uterus is surgically absent or markedly atrophic in appearance. LYMPH NODES: No greater than 1cm abdominal or pelvic lymph nodes are appreciated. OSSEOUS STRUCTURES: Innumerable diffuse sclerotic metastatic lesions are redemonstrated without signi ficant interval change. In addition focal lytic lesion right iliac crest on coronal image 42 is redem onstrated. OTHER: There is moderate amount of pelvic ascites redemonstrated in the cul-de- sac. IMPRESSION: 1. Diffuse osseous metastatic disease redemonstrated felt stable. Shrunken liver with heterogeneous h ypodense lesions likely reflective of diffuse metastatic involvement or pseudocirrhosis appearance is redemonstrated felt stable. Underlying portal hypertension is difficult to exclude. No new masses or adenopathy are present. 2. Fairly moderate to severe diffuse colonic fecal stasis. No overall bowel obstruction. 3. Mild right-sided hydronephrosis redemonstrated despite ureter stent placement felt stable. There i s more moderate left-sided hydronephrosis. Position of the catheter appears satisfactory on CT. Find ings stable #4 there is a new 3 mm right apical pulmonary nodule not seen on the previous exam.
== END | disposition home or self-care (01) ==
LOC: RADPROMAIN 09:44
PROVIDERS: ATTEND Internal Medicine Hematology & Oncology
DX: C50.919 Malignant neoplasm of unspecified site of unspecified female breast (principal); C41.9 Malignant neoplasm of bone and articular cartilage, unspecified
CPT/HCPCS: 71250; 74176; 82565; 84520

== ENCOUNTER 2017-08-18 22:17 | Inpatient (IN) | payer MEDICARE, OTHER ==
[2017-08-18] MEDS ORDERED: ONDANSETRON 4 MG/2 ML VIAL IVP STA (23:17)
[2017-08-18] MEDS ORDERED: HYDROmorphone 1 MG/ML 1 ML SYRINGE IVP STA (23:17)
[2017-08-18] MEDS ORDERED: SODIUM CHLORIDE 0.9% 1,000 ML IV ONE (23:17)
[2017-08-19 00:04] LABS: Anisocytosis Slight; Basophils % (A) 0 %; CH 33.3; CHCM 33.4; Eosinophils # (A) 0.1 k/uL (0-0.7); Eosinophils % (A) 4 %; HCT 28.7 % (34.0-46.0); HDW 2.68; HGB 9.2 gm/dL (11.4-16.0); Luc # (Auto) 0.08; Luc % (Auto) 3; Lymphocytes # (A) 0.5 k/uL (1.0-4.8); Lymphocytes % (A) 18 %; MCH 32.1 pg (25.0-35.0); MCV 100.3 fL (80.0-100.0); Macrocytosis Moderate; Mean Platelet Volume 7.4; Monocytes # (A) 0.4 k/uL (0-1.0); Monocytes % (A) 15 %; Neutrophils # (A) 1.5 k/uL (1.3-7.7); Neutrophils % (A) 59 %; RBC 2.86 m/uL (3.80-5.40); RDW 18.3 % (11.5-15.5); WBC 2.5 k/uL (3.8-10.6); WBC (Perox) 2.73
[2017-08-19] MEDS ORDERED: MORPHINE SULFATE 10 MG/ML SYRINGE IVP STA (00:09)
--- NOTE | 2017-08-19 00:09 | ED ---
SOB HPI - General Chief Complaint: Shortness of Breath Stated Complaint: SOB Time Seen by Provider: 08/18/17 22:32 Source: patient Mode of arrival: wheelchair Limitations: no limitations - History of Present Illness Initial Comments: 56-year-old female with past medical history of primary breast cancer with liver, spine, and neck metastases, bilateral mastectomy, urinary stenting, and right chest port presenting for evaluation of abdominal pain/distention. Patient states that she's been having these symptoms for the last half weeks and they have intermittently been present. She states that yesterday she got markedly more distended than usual and took an enema which allowed her to have a bowel movement and she passed a lot of gas as well. Her abdomen became markedly compressed however today it returned again. She took another enema and had resolution of her symptoms however her abdomen is once again become firm and distended even faster than it did yesterday. She has a long-standing history of constipation which is been attributed to her pain medications that she is on from her cancer. - Related Data Home Medications Medication Instructions Recorded Confirmed Cholecalciferol [Vitamin D3] 1,000 unit PO DAILY 02/19/15 08/18/17 fentaNYL 100MCG/HR PATCH 1 patch TRANSDERM Q72H 07/18/16 08/18/17 [Duragesic 100MCG/HR] oxyCODONE-APAP 10-325MG [Percocet 1 tab PO Q4HR PRN 11/28/16 08/18/17 10-325 mg] fentaNYL 25MCG/HR PATCH [Duragesic 25 mcg TRANSDERM Q72H 02/14/17 08/18/17 25MCG/HR] Multivitamins, Thera [Multivitamin 1 tab PO DAILY 08/18/17 08/18/17 (formulary)] Previous Rx's Medication Instructions Recorded Capecitabine [Xeloda] 1,000 mg PO HS #0 02/24/17 Capecitabine [Xeloda] 1,500 mg PO QAM #0 02/24/17 Allergies Allergy/AdvReac Type Severity Reaction Status Date / Time No Known Allergies Allergy Verified 08/18/17 22:33 Review of Systems ROS Statement: Those systems with pertinent positive or pertinent negative responses have been documented in the HPI. ROS Other: All systems not noted in ROS Statement are negative. Constitutional: Reports: weakness. Denies: fever, chills Eyes: Denies: eye discharge, vision change ENT: Denies: ear pain, throat pain, congestion Respiratory: Reports: dyspnea (Due to splinting from abdominal pain). Denies: cough, wheezes Cardiovascular: Denies: chest pain, palpitations, dyspnea on exertion, syncope Endocrine: Denies: fatigue, polydipsia, polyuria Gastrointestinal: Reports: abdominal pain, nausea, vomiting, constipation Genitourinary: Denies: urgency, dysuria Musculoskeletal: Denies: back pain, joint swelling Skin: Denies: rash, lesions Neurological: Denies: headache, weakness Psychiatric: Denies: anxiety, depression Hematological/Lymphatic: Denies: easy bleeding, easy bruising Past Medical History Past Medical History: Cancer Additional Past Medical History / Comment(s): liver spine neck mets primary breast cancer, chemo 9 days ago, History of Any Multi-Drug Resistant Organisms: None Reported Past Surgical History: Hysterectomy Additional Past Surgical History / Comment(s): Bilateral mastectomy; no iv bp on left arm, lymph node removal left side, urinary stents in August 2016 Past Anesthesia/Blood Transfusion Reactions: No Reported Reaction Additional Past Anesthesia/Blood Transfusion Reaction / Comment(s): Just received blood Past Psychological History: No Psychological Hx Reported Smoking Status: Former smoker Past Alcohol Use History: None Reported Past Drug Use History: None Reported - Past Family History Father Family Medical History: No Reported History Mother Family Medical History: Cancer Additional Family Medical History / Comment(s): Mother of Hodgkins disease. General Exam Limitations: no limitations General appearance: alert, in no apparent distress Head exam: Present: atraumatic, normocephalic Eye exam: Present: normal appearance, EOMI ENT exam: Present: normal exam, normal oropharynx Neck exam: Present: normal inspection, full ROM. Absent: tenderness Respiratory exam: Present: normal lung sounds bilaterally, respiratory distress. Absent: wheezes, rales Cardiovascular Exam: Present: regular rate, normal rhythm GI/Abdominal exam: Present: soft, distended, tenderness. Absent: guarding, rebound, rigid Rectal exam: Present: deferred Extremities exam: Present: normal inspection, full ROM. Absent: tenderness Back exam: Present: normal inspection, full ROM Neurological exam: Present: alert, oriented X3 Psychiatric exam: Present: normal affect, normal mood Skin exam: Present: warm, dry, intact, normal color. Absent: rash Course Vital Signs 08/18/17 22:19 Temperature 99 F Pulse Rate 82 Respiratory 20 Rate Blood Pressure 151/85 O2 Sat by Pulse 99 Oximetry Medical Decision Making - Medical Decision Making 56-year-old female with past medical history as noted above presented for evaluation of abdominal pain and distention for the last 2 and half weeks acutely worsening over the last couple days and relieved with enemas. She is only used enemas twice with the second one being used today however shortly after having a large bowel movement after the enema her abdomen once again became very distended and firm or than usual. She states that she is still passing flatness but no bowel movements. Abdominal pain is diffuse and is causing her to have splinted breathing. On physical examination she does have an enlarged abdomen which does feel firm however non-peritoneal. Hollow sound to percussion. Patient is port to her right upper chest. Concern for obstructing ileus versus small bowel traction and will obtain CT abdomen and pelvis, labs, and provide IV fluids pain control and Zofran. Labs significant for pancytopenia, acute kidney injury, transaminitis, and a urinary tract infection. CT abdomen and pelvis showed a new small right pleural effusion compared to last exam on 06/13/2017 as well as massive ascites that is increased from previous exams. There is also bilateral hydronephrosis that is worse in the right kidney compared to the last exam. Ureteral stents appear in good position. Other abnormalities from previous exams are stable. Patient reevaluated and found to be stable. She was informed of all results and that she would be admitted for further treatment and evaluation. Dr. Suh accepted the call for Dr. Garcia and requested the pt be admitted to Dr. Pierce with consult for Dr. Reid (gen surg) for ileus. Dr. Reid updated on the pt without further request. Admission order placed and bed request submitted. - Lab Data Result diagrams: 08/18/17 23:50 08/18/17 23:50 Lab Results 08/18/17 08/18/17 08/18/17 Range/Units 23:50 23:50 23:50 WBC 2.5 L (3.8-10.6) k/uL RBC 2.86 L (3.80-5.40) m/uL Hgb 9.2 L (11.4-16.0) gm/dL Hct 28.7 L (34.0-46.0) % MCV 100.3 H (80.0-100.0) fL MCH 32.1 (25.0-35.0) pg MCHC 32.0 (31.0-37.0) g/dL RDW 18.3 H (11.5-15.5) % Plt Count 151 (150-450) k/uL Neutrophils % 59 % Lymphocytes % 18 % Monocytes % 15 % Eosinophils % 4 % Basophils % 0 % Neutrophils # 1.5 (1.3-7.7) k/uL Lymphocytes # 0.5 L (1.0-4.8) k/uL Monocytes # 0.4 (0-1.0) k/uL Eosinophils # 0.1 (0-0.7) k/uL Basophils # 0.0 (0-0.2) k/uL Anisocytosis Slight Macrocytosis Moderate Sodium 139 (137-145) mmol/L Potassium 3.8 (3.5-5.1) mmol/L Chloride 106 (98-107) mmol/L Carbon Dioxide 22 (22-30) mmol/L Anion Gap 11 mmol/L BUN 13 (7-17) mg/dL Creatinine 1.34 H (0.52-1.04) mg/dL Est GFR (MDRD) Af Amer 50 (>60 ml/min/1.73 sqM) Est GFR (MDRD) Non-Af 41 (>60 ml/min/1.73 sqM) Glucose 82 (74-99) mg/dL Plasma Lactic Acid Marco Antonio 1.0 (0.7-2.0) mmol/L Calcium 8.9 (8.4-10.2) mg/dL Total Bilirubin 0.4 (0.2-1.3) mg/dL AST 44 H (14-36) U/L ALT 29 (9-52) U/L Alkaline Phosphatase 166 H (38-126) U/L Troponin I (0.000-0.034) ng/mL NT-Pro-B Natriuret Pep pg/mL Total Protein 5.8 L (6.3-8.2) g/dL Albumin 3.1 L (3.5-5.0) g/dL Urine Color Urine Appearance (Clear) Urine pH (5.0-8.0) Ur Specific [place] (1.001-1.035) Urine Protein (Negative) Urine Glucose (UA) (Negative) Urine Ketones (Negative) Urine Blood (Negative) Urine Nitrite (Negative) Urine Bilirubin (Negative) Urine Urobilinogen (<2.0) mg/dL Ur Leukocyte Esterase (Negative) Urine RBC (0-5) /hpf Urine WBC (0-5) /hpf Ur Squamous Epith Cells (0-4) /hpf Urine Bacteria (None) /hpf Urine Mucus (None) /hpf 08/18/17 08/18/17 08/19/17 Range/Units 23:50 23:50 00:09 WBC (3.8-10.6) k/uL RBC (3.80-5.40) m/uL Hgb (11.4-16.0) gm/dL Hct (34.0-46.0) % MCV (80.0-100.0) fL MCH (25.0-35.0) pg MCHC (31.0-37.0) g/dL RDW (11.5-15.5) % Plt Count (150-450) k/uL Neutrophils % % Lymphocytes % % Monocytes % % Eosinophils % % Basophils % % Neutrophils # (1.3-7.7) k/uL Lymphocytes # (1.0-4.8) k/uL Monocytes # (0-1.0) k/uL Eosinophils # (0-0.7) k/uL Basophils # (0-0.2) k/uL Anisocytosis Macrocytosis Sodium (137-145) mmol/L Potassium (3.5-5.1) mmol/L Chloride (98-107) mmol/L Carbon Dioxide (22-30) mmol/L Anion Gap mmol/L BUN (7-17) mg/dL Creatinine (0.52-1.04) mg/dL Est GFR (MDRD) Af Amer (>60 ml/min/1.73 sqM) Est GFR (MDRD) Non-Af (>60 ml/min/1.73 sqM) Glucose (74-99) mg/dL Plasma Lactic Acid [place] (0.7-2.0) mmol/L Calcium (8.4-10.2) mg/dL Total Bilirubin (0.2-1.3) mg/dL AST (14-36) U/L ALT (9-52) U/L Alkaline Phosphatase (38-126) U/L Troponin I <0.012 (0.000-0.034) ng/mL NT-Pro-B Natriuret Pep 615 pg/mL Total Protein (6.3-8.2) g/dL Albumin (3.5-5.0) g/dL Urine Color Yellow Urine Appearance Cloudy H (Clear) Urine pH 6.0 (5.0-8.0) Ur Specific [place] 1.015 (1.001-1.035) Urine Protein 2+ H (Negative) Urine Glucose (UA) Negative (Negative) Urine Ketones Negative (Negative) Urine Blood Large H (Negative) Urine Nitrite Negative (Negative) Urine Bilirubin Negative (Negative) Urine Urobilinogen <2.0 (<2.0) mg/dL Ur Leukocyte Esterase Moderate H (Negative) Urine RBC >182 H (0-5) /hpf Urine WBC 45 H (0-5) /hpf Ur Squamous Epith Cells 5 H (0-4) /hpf Urine Bacteria Rare H (None) /hpf Urine Mucus Few H (None) /hpf 08/19/17 01:01 Number sinus rhythm with ventricular rate of 73, [place] interval 122, QRS 72, QT/ QTC 398/438. Disposition Clinical Impression: UTI (urinary tract infection), ROMINA (acute kidney injury), Constipation, Pancytopenia, Ascites, Pleural effusion, Transaminitis Disposition: ADMITTED IP TO THIS HOSP Referrals: Chilango Watts MD [Primary Care Provider] - 1-2 days Decision to Admit Reason: Admit from EC Decision Date: 08/19/17 Decision Time: 01:08
[2017-08-19 00:15] LABS: Calcium 8.9 mg/dL (8.4-10.2); Potassium 3.8 mmol/L (3.5-5.1); Total Bilirubin 0.4 mg/dL (0.2-1.3); Total Protein 5.8 g/dL (6.3-8.2)
--- NOTE | 2017-08-19 00:19 | CT ---
EXAMINATION TYPE: CT abdomen pelvis wo con DATE OF EXAM: 08/19/2017 COMPARISON: 06/13/2017 HISTORY: abd distention CT DLP: 784 mGycm Automated exposure control for dose reduction was used. TECHNIQUE: Helical acquisition of images was performed from the lung bases through the pelvis. FINDINGS: There is a mild right pleural effusion. There is mild atelectasis at the right lung base. There is massive ascites fluid throughout the abdomen. There is irregular liver with markedly irregular contour consistent with advanced cirrhosis. Bile nataliia ts are difficult to evaluate because of the extensive liver disease. I see no sign focal splenic defe ct. There is no sign of pancreatic mass. There is a possible 2.6 cm low-density mass in the lateral r ight lobe of the liver. There is possible similar to centimeter mass in the inferior right lobe of th e liver. There is no sign of free air. There is bilateral hydronephrosis with bilateral ureteral stents. Right renal pelvis is more dilated than the left. I see no retroperitoneal adenopathy. There is no sign of a bowel obstruction. Bowel is not dilated. Is flattened by the massive ascites fluid. There is a mottled pattern of the lumbar vertebra. This could relate to osteoblastic disease. IMPRESSION: COMPARED TO LAST CT SCAN OF 06/13/2017 THERE IS A NEW SMALL RIGHT PLEURAL EFFUSION WITH MILD BASILAR AT ELECTASIS. THERE IS SIGNIFICANT INCREASE IN THE ASCITES FLUID WITH MASSIVE ASCITES PRESENT ON TODAY'S EXAM. IRREGULAR LIVER WITH POSSIBLE MULTIPLE LOW DENSITY MASSES CONSISTENT WITH METASTATIC DISEASE SIMILAR TO LAST EXAM. NO DEFINITE DILATED DUCTS. BILATERAL HYDRONEPHROSIS THAT IS WORSE IN THE RIGHT KIDNEY COMPARED TO LAST EXAM. URETERAL STENTS CHARLI EAR IN GOOD POSITION. OSTEOBLASTIC AND LYTIC CHANGES IN THE SPINE CONSISTENT WITH METASTATIC DISEASE THAT IS UNCHANGED.
[2017-08-19 00:31] LABS: Appearance,Urine Cloudy (Clear); Bacteria,Urine Rare /hpf; Bilirubin,Urine Negative (Negative); Glucose,Urine (UA) Negative (Negative); Ketones,Urine Negative (Negative); Leukocyte Esterase,Urine Moderate (Negative); Mucus,Urine Few /hpf; Nitrite,Urine Negative (Negative); Particle Count 5086; Protein,Urine 2+ (Negative); RBC,Urine >182 /hpf (0-5); Specific Gravity,Urine 1.015 (1.001-1.035); Squamous Epithelial Cell,Urine 5 /hpf (0-4); UA Billing (MACRO vs. MICRO) MICRO; Urobilinogen,Urine <2.0 mg/dL (<2.0); WBC,Urine 45 /hpf (0-5)
--- NOTE | 2017-08-19 00:51 | XR ---
EXAMINATION TYPE: XR chest 2V DATE OF EXAM: 08/19/2017 COMPARISON: 02/21/2017 HISTORY: Short of breath TECHNIQUE: Frontal and lateral views of the chest are obtained. FINDINGS: There is some linear density at the right lung base. There is right central venous cathete r with tip in the superior vena cava. There is no heart failure. Heart size is normal. There are ches t leads. Bony thorax appears intact. There is slight blunting of right costophrenic angle. IMPRESSION: There is new atelectasis at the right lung base compared to last exam. Normal heart. Ne w small right pleural effusion. No heart failure.
[2017-08-19] MEDS ORDERED: HYDROmorphone 1 MG/ML 1 ML SYRINGE IVP PRN (01:08)
[2017-08-19] MEDS ORDERED: NALOXONE 0.4 MG/ML 1 ML VIAL IV PRN (01:08)
[2017-08-19 02:56] VITALS: BMI 18.8
[2017-08-19] MEDS: MORPHINE SULFATE 2 MG/ML SYRINGE IV PRN ×4 (04:20→20:11)
[2017-08-19] MEDS: DEXTROSE 5%-0.45% NACL 1,000 ML IV SCH ×2 (04:33→12:31)
[2017-08-19] MEDS ORDERED: CAPECITABINE 1500 MG PO SCH (09:00)
[2017-08-19] MEDS: CHOLECALCIFEROL 1,000 UNIT TAB PO SCH (09:25)
[2017-08-19] MEDS: ONDANSETRON 4 MG/2 ML VIAL IVP PRN ×2 (09:29→18:02)
[2017-08-19] MEDS ORDERED: POLYETHYLENE GLYCOL 3350 17 GM POWD.PACK PO PRN (10:55)
--- NOTE | 2017-08-19 11:00 | P.GSCN ---
History of Present Illness Consult date: 08/19/17 Reason for Consult: Abdominal pain, distention History of present illness: This a 56-year-old female with known history of metastatic breast cancer. Patient was admitted through the emergency room with complaints of shortness of breath. She underwent CAT scan which shows newly Diagnosis massive ascites. She states that she has some abdominal pain. She mainly complains of abdominal distention. Past Medical History Past Medical History: Cancer, GERD/Reflux Additional Past Medical History / Comment(s): liver spine neck mets primary breast cancer, chemo 9 days ago, History of Any Multi-Drug Resistant Organisms: None Reported Past Surgical History: Hysterectomy Additional Past Surgical History / Comment(s): Bilateral mastectomy; no iv bp on left arm, lymph node removal left side, urinary stents in August 2016 Past Anesthesia/Blood Transfusion Reactions: No Reported Reaction Additional Past Anesthesia/Blood Transfusion Reaction / Comm: Just received blood Past Psychological History: No Psychological Hx Reported Additional Psychological History / Comment(s): Pt lives with family in a home. Pt is independent. She still drives a car. She does not have any outside agency helping at this time. She uses no assistive devices. Smoking Status: Former smoker Past Alcohol Use History: None Reported Additional Past Alcohol Use History / Comment(s): started smoking in 1978,quit 2001.was smoking 1 ppd by the time she quit. Past Drug Use History: None Reported - Past Family History Father Family Medical History: No Reported History Mother Family Medical History: Cancer Additional Family Medical History / Comment(s): Mother of Hodgkins disease. Medications and Allergies Home Medications Medication Instructions Recorded Confirmed Type Cholecalciferol [Vitamin D3] 1,000 unit PO DAILY 02/19/15 08/18/17 History fentaNYL 100MCG/HR PATCH 1 patch TRANSDERM Q72H 07/18/16 08/18/17 History [Duragesic 100MCG/HR] oxyCODONE-APAP 10-325MG [Percocet 1 tab PO Q4HR PRN 11/28/16 08/18/17 History 10-325 mg] fentaNYL 25MCG/HR PATCH [Duragesic 25 mcg TRANSDERM Q72H 02/14/17 08/18/17 History 25MCG/HR] Capecitabine [Xeloda] 1,000 mg PO HS #0 02/24/17 08/18/17 Rx Capecitabine [Xeloda] 1,500 mg PO QAM #0 02/24/17 08/18/17 Rx Multivitamins, Thera [Multivitamin 1 tab PO DAILY 08/18/17 08/18/17 History (formulary)] Allergies Allergy/AdvReac Type Severity Reaction Status Date / Time No Known Allergies Allergy Verified 08/18/17 22:33 Surgical - Exam Vital Signs Temp Pulse Resp BP Pulse Ox 99 F 82 20 151/85 99 08/18/17 22:19 08/18/17 22:19 08/18/17 22:19 08/18/17 22:19 08/18/17 22:19 - General cachectic - Eyes PERRL - ENT normal pinna - Abdomen Abdomen is distended. There is evidence of ascites. Results - Labs 08/18/17 23:50 08/18/17 23:50 Abnormal Lab Results - Last 24 Hours (Table) 08/18/17 08/18/17 08/19/17 Range/Units 23:50 23:50 00:09 WBC 2.5 L (3.8-10.6) k/uL RBC 2.86 L (3.80-5.40) m/uL Hgb 9.2 L (11.4-16.0) gm/dL Hct 28.7 L (34.0-46.0) % MCV 100.3 H (80.0-100.0) fL RDW 18.3 H (11.5-15.5) % Lymphocytes # 0.5 L (1.0-4.8) k/uL Creatinine 1.34 H (0.52-1.04) mg/dL AST 44 H (14-36) U/L Alkaline Phosphatase 166 H (38-126) U/L Total Protein 5.8 L (6.3-8.2) g/dL Albumin 3.1 L (3.5-5.0) g/dL Urine Appearance Cloudy H (Clear) Urine Protein 2+ H (Negative) Urine Blood Large H (Negative) Ur Leukocyte Esterase Moderate H (Negative) Urine RBC >182 H (0-5) /hpf Urine WBC 45 H (0-5) /hpf Ur Squamous Epith Cells 5 H (0-4) /hpf Urine Bacteria Rare H (None) /hpf Urine Mucus Few H (None) /hpf Diabetes panel 08/18/17 Range/Units 23:50 Sodium 139 (137-145) mmol/L Potassium 3.8 (3.5-5.1) mmol/L Chloride 106 (98-107) mmol/L Carbon Dioxide 22 (22-30) mmol/L BUN 13 (7-17) mg/dL Creatinine 1.34 H (0.52-1.04) mg/dL Glucose 82 (74-99) mg/dL Calcium 8.9 (8.4-10.2) mg/dL AST 44 H (14-36) U/L ALT 29 (9-52) U/L Alkaline Phosphatase 166 H (38-126) U/L Total Protein 5.8 L (6.3-8.2) g/dL Albumin 3.1 L (3.5-5.0) g/dL Calcium panel 08/18/17 Range/Units 23:50 Calcium 8.9 (8.4-10.2) mg/dL Albumin 3.1 L (3.5-5.0) g/dL Pituitary panel 08/18/17 Range/Units 23:50 Sodium 139 (137-145) mmol/L Potassium 3.8 (3.5-5.1) mmol/L Chloride 106 (98-107) mmol/L Carbon Dioxide 22 (22-30) mmol/L BUN 13 (7-17) mg/dL Creatinine 1.34 H (0.52-1.04) mg/dL Glucose 82 (74-99) mg/dL Calcium 8.9 (8.4-10.2) mg/dL Adrenal panel 08/18/17 Range/Units 23:50 Sodium 139 (137-145) mmol/L Potassium 3.8 (3.5-5.1) mmol/L Chloride 106 (98-107) mmol/L Carbon Dioxide 22 (22-30) mmol/L BUN 13 (7-17) mg/dL Creatinine 1.34 H (0.52-1.04) mg/dL Glucose 82 (74-99) mg/dL Calcium 8.9 (8.4-10.2) mg/dL Total Bilirubin 0.4 (0.2-1.3) mg/dL AST 44 H (14-36) U/L ALT 29 (9-52) U/L Alkaline Phosphatase 166 H (38-126) U/L Total Protein 5.8 L (6.3-8.2) g/dL Albumin 3.1 L (3.5-5.0) g/dL - Imaging CT scan - pelvis: report reviewed (Massive ascites without evidence of bowel obstruction) Assessment and Plan Plan: Abdominal pain secondary to massive ascites. Would recommend paracentesis. I discussed with Dr. Suh.
--- NOTE | 2017-08-19 11:48 | P.HPIM ---
History of Present Illness 56-year-old female with past medical history of primary breast cancer with liver, spine, and neck metastases, bilateral mastectomy, urinary stenting, and right chest port presenting for evaluation of abdominal pain/distention. Patient states that she's been having these symptoms for the last half weeks and they have intermittently been present. She states that yesterday she got markedly more distended than usual and took an enema which allowed her to have a bowel movement and she passed a lot of gas as well. Patient did move her bowel but patient is a significant ascites tense ascites for which PARACENTESIS WAS ORDERED AND PATIENT HAS SHORTNESS OF BREATH SECONDARY TO DISTENTION OF ABDOMEN PATIENT LUNGS ARE CLEAR. PATIENT IS COMPARING OF ABDOMINAL PAIN SHARP IN NATURE ALTHOUGH DOES NOT HAVE ANY SIGNS OR SYMPTOMS OF SEPSIS PATIENT WAS ALSO COMPLAINING OF DYSURIA BECAUSE OF WHICH PATIENT IS A STARTED ON ROCEPHIN WHICH WILL BE CONTINUED WHICH IS ALSO HELPFUL FOR PERITONITIS IF AT ALL SHE HAS ALTHOUGH MY SUSPICION IS EXTREMELY LOW FOR PERITONITIS Review of Systems REVIEW OF SYSTEMS: CONSTITUTIONAL: No fever, no malaise, no fatigue. HEENT: No recent visual problems or hearing problems. Denied any sore throat. CARDIOVASCULAR: No chest pain, orthopnea, PND, no palpitations, no syncope. PULMONARY: No shortness of breath, no cough, no hemoptysis. GASTROINTESTINAL: No diarrhea, as mentioned in HPI NEUROLOGICAL: No headaches, no weakness, no numbness. HEMATOLOGICAL: Denies any bleeding or petechiae. GENITOURINARY: Denies any burning micturition, frequency, or urgency. MUSCULOSKELETAL/RHEUMATOLOGICAL: Denies any joint pain, swelling, or any muscle pain. ENDOCRINE: Denies any polyuria or polydipsia. The rest of the 14-point review of systems is negative. Past Medical History Past Medical History: Cancer, GERD/Reflux Additional Past Medical History / Comment(s): liver spine neck mets primary breast cancer, chemo 9 days ago, History of Any Multi-Drug Resistant Organisms: None Reported Past Surgical History: Hysterectomy Additional Past Surgical History / Comment(s): Bilateral mastectomy; no iv bp on left arm, lymph node removal left side, urinary stents in August 2016 Past Anesthesia/Blood Transfusion Reactions: No Reported Reaction Additional Past Anesthesia/Blood Transfusion Reaction / Comment(s): Just received blood Past Psychological History: No Psychological Hx Reported Additional Psychological History / Comment(s): Pt lives with family in a home. Pt is independent. She still drives a car. She does not have any outside agency helping at this time. She uses no assistive devices. Smoking Status: Former smoker Past Alcohol Use History: None Reported Additional Past Alcohol Use History / Comment(s): started smoking in 1978,quit 2001.was smoking 1 ppd by the time she quit. Past Drug Use History: None Reported - Past Family History Father Family Medical History: No Reported History Mother Family Medical History: Cancer Additional Family Medical History / Comment(s): Mother of Hodgkins disease. Medications and Allergies Home Medications Medication Instructions Recorded Confirmed Type Cholecalciferol [Vitamin D3] 1,000 unit PO DAILY 02/19/15 08/18/17 History fentaNYL 100MCG/HR PATCH 1 patch TRANSDERM Q72H 07/18/16 08/18/17 History [Duragesic 100MCG/HR] oxyCODONE-APAP 10-325MG [Percocet 1 tab PO Q4HR PRN 11/28/16 08/18/17 History 10-325 mg] fentaNYL 25MCG/HR PATCH [Duragesic 25 mcg TRANSDERM Q72H 02/14/17 08/18/17 History 25MCG/HR] Capecitabine [Xeloda] 1,000 mg PO HS #0 02/24/17 08/18/17 Rx Capecitabine [Xeloda] 1,500 mg PO QAM #0 02/24/17 08/18/17 Rx Multivitamins, Thera [Multivitamin 1 tab PO DAILY 08/18/17 08/18/17 History (formulary)] Allergies Allergy/AdvReac Type Severity Reaction Status Date / Time No Known Allergies Allergy Verified 08/18/17 22:33 Physical Exam Vitals: Vital Signs Temp Pulse Pulse Resp BP BP Pulse Ox 08/19/17 09:25 96/66 08/19/17 08:21 98.4 F 73 16 81/53 96 08/19/17 02:37 98.8 F 85 16 112/66 95 08/19/17 01:32 98.9 F 84 17 101/60 94 L 08/18/17 22:19 99 F 82 20 151/85 99 Intake and Output 08/18/17 08/19/17 08/19/17 22:59 06:59 14:59 Intake Total 1125 Balance 1125 Intake: Amount of Fluid Infused ( 1000 ml) Intake, IV Titration 125 Amount Dextrose 5%-0.45% NaCl 1, 125 000 ml @ 125 mls/hr IV . Q8H [facility] Rx#:[id number] Other: Voiding Method Toilet Toilet Weight 49.895 kg 49.895 kg PHYSICAL EXAMINATION: GENERAL: The patient is alert and oriented x3, not in any acute distress. Thin built HEENT: Pupils are round and equally reacting to light. EOMI. No scleral icterus. No conjunctival pallor. Normocephalic, atraumatic. No pharyngeal erythema. No thyromegaly. CARDIOVASCULAR: S1 and S2 present. No murmurs, rubs, or gallops. PULMONARY: Chest is clear to auscultation, no wheezing or crackles. ABDOMEN: Distended, fluid thrill tense ascites no tenderness. MUSCULOSKELETAL: No joint swelling or deformity. EXTREMITIES: No cyanosis, clubbing, or pedal edema. NEUROLOGICAL: Gross neurological examination did not reveal any focal deficits. SKIN: No rashes. Results CBC & Chem 7: 08/18/17 23:50 08/18/17 23:50 Labs: Abnormal Lab Results - Last 24 Hours (Table) 08/18/17 08/18/17 08/19/17 Range/Units 23:50 23:50 00:09 WBC 2.5 L (3.8-10.6) k/uL RBC 2.86 L (3.80-5.40) m/uL Hgb 9.2 L (11.4-16.0) gm/dL Hct 28.7 L (34.0-46.0) % MCV 100.3 H (80.0-100.0) fL RDW 18.3 H (11.5-15.5) % Lymphocytes # 0.5 L (1.0-4.8) k/uL Creatinine 1.34 H (0.52-1.04) mg/dL AST 44 H (14-36) U/L Alkaline Phosphatase 166 H (38-126) U/L Total Protein 5.8 L (6.3-8.2) g/dL Albumin 3.1 L (3.5-5.0) g/dL Urine Appearance Cloudy H (Clear) Urine Protein 2+ H (Negative) Urine Blood Large H (Negative) Ur Leukocyte Esterase Moderate H (Negative) Urine RBC >182 H (0-5) /hpf Urine WBC 45 H (0-5) /hpf Ur Squamous Epith Cells 5 H (0-4) /hpf Urine Bacteria Rare H (None) /hpf Urine Mucus Few H (None) /hpf Thrombosis Risk Factor Assmnt - Choose All That Apply Any of the Below Risk Factors Present?: No Other Risk Factors: No Thrombosis Risk Factor Assessment Level: Very Low Risk Assessment and Plan Plan: Abdominal pain: Secondary to tense ascites and constipation constipation resolved for ascites which is probably malignancy-related patient will need ultrasound-guided paracentesis which was ordered. And the of ascitic fluid labs will be ordered as well. Shortness of breath: Secondary to ascites. Metastatic breast cancer for which patient is on chemotherapy in the oral form which will be continued Constipation: Secondary to opiate analgesia for which we will use symptomatic treatment with MiraLAX senna and Colace. Gastroesophageal reflux disease Acute renal failure: Probably prerenal azotemia can be related to ascites along with intravascularly depletion, hold off on IV fluids secondary to distended abdomen ascites
[2017-08-19 13:35] LABS: INR 1.1 (<1.2); Prothrombin Time 10.8 sec (9.0-12.0)
[2017-08-19] MEDS: SENNOSIDES 8.6 MG TAB PO SCH (14:59)
--- NOTE | 2017-08-19 19:10 | P.CONS ---
History of Present Illness - Reason for Consult Consult date: 08/19/17 abdominal pain and distention. Breast cancer - History of Present Illness Ms Corona is a 56 yr old female pt of Dr. Watts and very well know to the practice. 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 She did well until August 2011 when she developed invasive lobular carcinoma of the left breast. She had bilateral mastectomies with left axillary node resection, pathology multifocal invasive lobular carcinoma, largest foci was 5cm, 1 left axillary node positive for macrometastasis and 2 had isolated tumor cells, ER/NE + and HER2/JORGE A negative by FISH. She completed 6 cycles of adjuvant taxotere and cytoxan on 01/17/2012 , then completed radiation therapy in April 2012, then placed on oral tamoxifen. Pt was followed and monitored, with testing and follow up negative for metastatic disease. She was seen 12/11/2014 at [facility] because of right sided chest pain, CT chest revealed multiple small foci of radiolucent bony lesions and multiple small liver lesions suspicious for metastatic disease, CT of cervical spine revealed multiple small foci of vertebral metastasis, CT AP revealed multiple liver lesions, bone scan confirmed diffuse skeletal metastasis. She was started on second line hormonal therapy so she was enrolled on S1222 clinical trial, she was randomized to faslodex/everolimus/ placebo, bisphosphonate therapy initiated. Treatment follow up CT CAP 2014 revealed stable disease. MRI of thoracic and lumbar spine done in April 2015 revealed bone metastasis without cord compression. She continued on the study until the study was closed 10/13/2015, CT CAP revealed evidence of progression of liver metastasis. She started ibrance and continued femara on . Treatment follow up CT CAP and bone scan on 12/25/2015 revealed stable disease and slight improvement in liver lesions. Follow up CT CAP 2015 revealed relatively stable disease. She unfortunately developed progressive subcutaneous skin lesions, she was started on weekly taxol on 2015. CT CAP on 07/05/2016 revealed evidence of disease progression in the liver with ascites and hydronephrosis, taxol was discontinued 06/29/2016. Pt required ureteral stent, placed 07/20/16. Pt started AC 07/28/16. She had 3 cycles with hospitalizations after each dose due to side effects and neutropenic complications. CT CAP 08/30/2016 revealed stable disease but ascites from liver cirrhosis was worse. [facility] but not felt to be a candidate. She started xeloda on 12/09/2016 and has done well since. the patient has been having issues with abdominal distention and constipation now for several days. She states that only the suppositories appear to be effective. With bowel movements, abdominal distention would decrease but then recur. On the day of admission, the patient appeared to have more distention than usual associated with abdominal discomfort, and nausea . She had a large bowel movement with suppository, but distention recurred within a short period of time. She therefore came into the emergency room. CT scan of the abdomen and pelvis showed evidence of ascites. There also appeared to be ileus. Urinalysis is suspicious for UTI. This was discussed with the emergency room physician, and it was decided that the patient be admitted. Review of Systems Constitutional: Reports fatigue, Reports poor appetite Eyes: denies blurred vision, denies pain Ears: deny: decreased hearing, ear discharge, earache, tinnitus Ears, nose, mouth and throat: Denies headache, Denies sore throat Cardiovascular: Reports dyspnea on exertion Respiratory: Reports dyspnea ( Mild) Gastrointestinal: Reports as per HPI, Reports abdominal pain, Reports bloating, Reports constipation, Reports nausea Genitourinary: Denies dysuria, Denies hematuria Menstruation: Reports postmenopausal Musculoskeletal: Reports muscle weakness Integumentary: Denies pruritus, Denies rash Neurological: Reports weakness Psychiatric: Denies anxiety, Denies depression Endocrine: Reports fatigue Hematologic/Lymphatic: Reports as per HPI Past Medical History Past Medical History: Cancer, GERD/Reflux Additional Past Medical History / Comment(s): liver spine neck mets primary breast cancer, chemo 9 days ago, History of Any Multi-Drug Resistant Organisms: None Reported Past Surgical History: Hysterectomy Additional Past Surgical History / Comment(s): Bilateral mastectomy; no iv bp on left arm, lymph node removal left side, urinary stents in August 2016 Past Anesthesia/Blood Transfusion Reactions: No Reported Reaction Additional Past Anesthesia/Blood Transfusion Reaction / Comm: Just received blood Past Psychological History: No Psychological Hx Reported Additional Psychological History / Comment(s): Pt lives with family in a home. Pt is independent. She still drives a car. She does not have any outside agency helping at this time. She uses no assistive devices. Smoking Status: Former smoker Past Alcohol Use History: None Reported Additional Past Alcohol Use History / Comment(s): started smoking in 1978,quit 2001.was smoking 1 ppd by the time she quit. Past Drug Use History: None Reported - Past Family History Father Family Medical History: No Reported History Mother Family Medical History: Cancer Additional Family Medical History / Comment(s): Mother of Hodgkins disease. Medications and Allergies Home Medications Medication Instructions Recorded Confirmed Type Cholecalciferol [Vitamin D3] 1,000 unit PO DAILY 02/19/15 08/18/17 History fentaNYL 100MCG/HR PATCH 1 patch TRANSDERM Q72H 07/18/16 08/18/17 History [Duragesic 100MCG/HR] oxyCODONE-APAP 10-325MG [Percocet 1 tab PO Q4HR PRN 11/28/16 08/18/17 History 10-325 mg] fentaNYL 25MCG/HR PATCH [Duragesic 25 mcg TRANSDERM Q72H 02/14/17 08/18/17 History 25MCG/HR] Capecitabine [Xeloda] 1,000 mg PO HS #0 02/24/17 08/18/17 Rx Capecitabine [Xeloda] 1,500 mg PO QAM #0 02/24/17 08/18/17 Rx Multivitamins, Thera [Multivitamin 1 tab PO DAILY 08/18/17 08/18/17 History (formulary)] Allergies Allergy/AdvReac Type Severity Reaction Status Date / Time No Known Allergies Allergy Verified 08/18/17 22:33 Physical Exam Vitals: Vital Signs Temp Pulse Pulse Resp BP BP Pulse Ox 08/19/17 15:00 98.2 F 70 16 91/53 97 08/19/17 09:25 96/66 08/19/17 08:21 98.4 F 73 16 81/53 96 08/19/17 02:37 98.8 F 85 16 112/66 95 08/19/17 01:32 98.9 F 84 17 101/60 94 L 08/18/17 22:19 99 F 82 20 151/85 99 Intake and Output 08/19/17 08/19/17 08/19/17 06:59 14:59 22:59 Intake Total 1125 80 Balance 1125 80 Intake: Amount of Fluid Infused ( 1000 ml) Intake, IV Titration 125 80 Amount Dextrose 5%-0.45% NaCl 1, 125 80 000 ml @ 125 mls/hr IV . Q8H [facility] Rx#:[id number] Other: Voiding Method Toilet Toilet Toilet Weight 49.895 kg 49.895 kg Patient Weight 08/20/17 06:59 Weight 49.895 kg - Constitutional General appearance: mild distress - EENT Eyes: EOMI, PERRLA ENT: hearing grossly normal, normal oropharynx - Neck Neck: no lymphadenopathy - Respiratory Respiratory: bilateral: diminished - Cardiovascular Rhythm: regular Heart sounds: normal: S1, S2 - Gastrointestinal tense ascites by exam General gastrointestinal: decreased bowel sounds, distended - Integumentary Integumentary: normal - Neurologic Neurologic: CNII-XII intact - Musculoskeletal Musculoskeletal: generalized weakness, strength equal bilaterally - Psychiatric Psychiatric: A&O x's 3, appropriate affect Results CBC & Chem 7: 08/18/17 23:50 08/18/17 23:50 Labs: Abnormal Lab Results - Last 24 Hours (Table) 08/18/17 08/18/17 08/19/17 Range/Units 23:50 23:50 00:09 WBC 2.5 L (3.8-10.6) k/uL RBC 2.86 L (3.80-5.40) m/uL Hgb 9.2 L (11.4-16.0) gm/dL Hct 28.7 L (34.0-46.0) % MCV 100.3 H (80.0-100.0) fL RDW 18.3 H (11.5-15.5) % Lymphocytes # 0.5 L (1.0-4.8) k/uL Creatinine 1.34 H (0.52-1.04) mg/dL AST 44 H (14-36) U/L Alkaline Phosphatase 166 H (38-126) U/L Total Protein 5.8 L (6.3-8.2) g/dL Albumin 3.1 L (3.5-5.0) g/dL Urine Appearance Cloudy H (Clear) Urine Protein 2+ H (Negative) Urine Blood Large H (Negative) Ur Leukocyte Esterase Moderate H (Negative) Urine RBC >182 H (0-5) /hpf Urine WBC 45 H (0-5) /hpf Ur Squamous Epith Cells 5 H (0-4) /hpf Urine Bacteria Rare H (None) /hpf Urine Mucus Few H (None) /hpf Microbiology - Last 24 Hours (Table) 08/19/17 00:09 Urine Culture - Preliminary Urine,Clean Catch Chest x-ray: report reviewed CT scan - abdomen: report reviewed CT scan - pelvis: report reviewed Assessment and Plan (1) Ascites Narrative/Plan: the patient's exam was suggestive of tense ascites. CT scan of the abdomen and pelvis confirmed the presence of ascites fluid. Case was discussed with the surgical service, who also felt that her presentation was most likely due to the same. Therefore ultrasound-guided paracentesis was ordered. As the patient has known history of cirrhosis and ascites due to portal hypertension in the past, cytology, as well as other labs are ordered to distinguish between that versus progression of her breast cancer Status: Acute (2) Constipation Narrative/Plan: the case was discussed to surgery. According to their evaluation, there did not appear to be a significant ileus. it was felt, that her symptoms were likely due to recurrent significant ascites. Bowel sounds are positive. She was kept nothing by mouth on admission. I will advance her diet to clear liquids. Patient will be placed on Senokot. and continue to utilize enemas when necessary. hopefully bowel movements and more regular, once ascites has been relieved Status: Acute (3) UTI (urinary tract infection) Narrative/Plan: UA was suspicious, and the patient has been placed on Rocephin . no fever noted Status: Acute (4) Breast cancer Narrative/Plan: the patient has had disease control with Xeloda, for now about 8 months. She is currently on her scheduled treatment break. Xeloda will be resumed, only when acute condition has resolved in a satisfactory manner Status: Acute
[2017-08-19] MEDS ORDERED: NON-FORMULARY DRUG (Capecitabine [Xeloda] 1,000 MG) PO SCH (21:00)
[2017-08-20] MEDS: SENNOSIDES 8.6 MG TAB PO SCH ×3 (02:40→21:59)
[2017-08-20] MEDS: MORPHINE SULFATE 2 MG/ML SYRINGE IV PRN ×5 (02:44→21:54)
[2017-08-20 06:31] LABS: Anisocytosis Slight; Aty Lym Flag Slight; CH 31.8; HCT 26.9 % (34.0-46.0); HDW 2.78; HGB 8.6 gm/dL (11.4-16.0); MCH 31.8 pg (25.0-35.0); MCHC 31.9 g/dL (31.0-37.0); MCV 99.8 fL (80.0-100.0); Macrocytosis Slight; RDW 16.8 % (11.5-15.5); WBC (Perox) 2.01
[2017-08-20 06:38] LABS: Calcium 8.8 mg/dL (8.4-10.2); Total Bilirubin 0.4 mg/dL (0.2-1.3); Total Protein 5.3 g/dL (6.3-8.2)
--- NOTE | 2017-08-20 07:21 | XR ---
EXAMINATION TYPE: XR abdomen 2V , 3 VIEWS DATE OF EXAM ORDERED: 08/20/2017 HISTORY: Abdominal pain. COMPARISON: Previous study dated 11/28/2016. FINDINGS: Bilateral double-J stents remain in place. Lung bases are clear. Within the abdomen, the abdominal gas pattern is normal. There is no evidence of obstruction or free air. There appear to be ensure devices within the pelvis. IMPRESSION: 1. STATUS POST OF LIVER SINCE. 2. NO DEFINITE ACUTE INTRA-ABDOMINAL ABNORMALITY. 3. MOST OF THE FINDINGS ON THE PATIENT'S RECENT CT OF 08/18/2017 CANNOT BE DEMONSTRATED ON THIS STUDY .
[2017-08-20 07:25] LABS: Add Differential Manual Differential
[2017-08-20 07:31] LABS: Manual Review Performed; Myelocytes % 2 %; Nucleated Red Blood Cells 0 /100 WBC (0-0); Total Cells Counted 200
[2017-08-20] MEDS: ONDANSETRON 4 MG/2 ML VIAL IVP PRN ×2 (08:44→17:15)
[2017-08-20] MEDS: CHOLECALCIFEROL 1,000 UNIT TAB PO SCH (08:46)
--- NOTE | 2017-08-20 10:47 | P.PN ---
Progress Note - Text Progress Note Date: 08/20/17 The patient has a resting comfortably in her bed. She still has complaints of abdominal pain distention. She's had several bowel movements. On exam her vital signs are stable. Abdomen is tense with ascites. Patient will undergo paracentesis today. There is no evidence of any bowel obstruction.
[2017-08-20] MEDS: SODIUM CHLORIDE 0.9% 1,000 ML IV SCH ×2 (11:32→21:55)
--- NOTE | 2017-08-20 15:01 | P.PN ---
Subjective Patient was admitted secondary to shortness of breath related to ascites and patient will undergo paracentesis today. Constitutional: Denied any fatigue denied any fever. Cardio vascular: denied any chest pain, palpitations Gastrointestinal denied any nausea vomiting Pulmonary: Patient can use to her shortness of breath h Neurologic denied any new focal deficits Objective - Vital Signs Vital signs: Vital Signs Temp 98.6 F 08/20/17 14:26 Pulse 86 08/20/17 14:26 Resp 20 08/20/17 14:26 BP 117/70 08/20/17 14:26 Pulse Ox 96 08/20/17 14:26 Intake & Output 08/19/17 08/20/17 08/20/17 18:59 06:59 18:59 Intake Total 80 120 80 Balance 80 120 80 Weight 49.895 kg 49.895 kg Intake: Intake, IV Titration 80 80 Amount Dextrose 5%-0.45% NaCl 1, 80 000 ml @ 125 mls/hr IV . Q8H [facility] Rx#:[id number] Sodium Chloride 0.9% 1, 80 000 ml @ 100 mls/hr IV . Q10H [facility] Rx#:[id number] Oral 120 Other: Voiding Method Toilet Toilet Toilet # Voids 1 - Exam PHYSICAL EXAMINATION: GENERAL: The patient is alert and oriented x3, not in any acute distress. Thin built HEENT: Pupils are round and equally reacting to light. EOMI. No scleral icterus. No conjunctival pallor. Normocephalic, atraumatic. No pharyngeal erythema. No thyromegaly. CARDIOVASCULAR: S1 and S2 present. No murmurs, rubs, or gallops. PULMONARY: Chest is clear to auscultation, no wheezing or crackles. ABDOMEN: Distended, fluid thrill tense ascites no tenderness. MUSCULOSKELETAL: No joint swelling or deformity. EXTREMITIES: No cyanosis, clubbing, or pedal edema. NEUROLOGICAL: Gross neurological examination did not reveal any focal deficits. SKIN: No rashes. - Labs CBC & Chem 7: 08/20/17 06:09 08/20/17 06:09 Labs: Abnormal Lab Results - Last 24 Hours (Table) 08/20/17 08/20/17 Range/Units 06:09 06:09 WBC 2.0 L* (3.8-10.6) k/uL RBC 2.70 L (3.80-5.40) m/uL Hgb 8.6 L (11.4-16.0) gm/dL Hct 26.9 L (34.0-46.0) % RDW 16.8 H (11.5-15.5) % Plt Count 129 L (150-450) k/uL Lymphocytes # (Manual) 0.34 L (1.0-4.8) k/uL Myelocytes # (Manual) 0.04 H (0) k/uL Chloride 110 H (98-107) mmol/L Carbon Dioxide 21 L (22-30) mmol/L Creatinine 1.57 H (0.52-1.04) mg/dL AST 42 H (14-36) U/L Alkaline Phosphatase 135 H (38-126) U/L Total Protein 5.3 L (6.3-8.2) g/dL Albumin 2.6 L (3.5-5.0) g/dL Microbiology - Last 24 Hours (Table) 08/19/17 00:09 Urine Culture - Final Urine,Clean Catch 08/18/17 23:50 Blood Culture - Preliminary Blood No Growth after 24 hours Assessment and Plan Plan: Abdominal pain: Secondary to tense ascites and constipation constipation resolved for ascites which is probably malignancy-related patient will need ultrasound-guided paracentesis which was ordered. And the of ascitic fluid labs will be ordered as well. Shortness of breath: Secondary to ascites. Metastatic breast cancer for which patient is on chemotherapy in the oral form which will be continued Constipation: Secondary to opiate analgesia for which we will use symptomatic treatment with MiraLAX senna and Colace. Gastroesophageal reflux disease Acute renal failure: Probably prerenal azotemia can be related to ascites along with intravascularly depletion, Patient will be started on gentle hydration
--- NOTE | 2017-08-20 21:02 | US ---
EXAMINATION TYPE: US paracentesis abd w/image DATE OF EXAM: 08/20/2017 CLINICAL HISTORY: 56 year-old female potential ascites, history of breast cancer, referred for thera peutic and diagnostic paracentesis TECHNIQUE AND FINDINGS: The procedure was discussed with the patient. The risks, complications, benefits, and alternatives we re discussed and any questions were answered. Informed consent was obtained. Ultrasound was used to determine the precise skin entry point along the right lower quadrant. Procedure was performed at the patient's bedside. The patient was prepped and draped in the usual beti rile fashion. All elements of maximal barrier technique were utilized. A small skin krystal was made. A 6 [place] Safetcentesis catheter was advanced into the right lower quadr ant and access to the ascites fluid was secured. Approximately 6 liters of straw-colored fluid was removed. 60 mL was collected separately in a syring e which the nurse collected and sent for requested laboratory assessment. The patient was stable throughout the procedure with condition improved following the procedure. IMPRESSION: Successful therapeutic and diagnostic paracentesis under ultrasound guidance. 6 L of ascites fluid re moved. Laboratory analysis pending.
[2017-08-20 23:48] VITALS: RESP 16
[2017-08-21] MEDS: MORPHINE SULFATE 2 MG/ML SYRINGE IV PRN (02:13)
[2017-08-21] MEDS: SENNOSIDES 8.6 MG TAB PO SCH ×2 (07:20→07:37)
[2017-08-21] MEDS: SODIUM CHLORIDE 0.9% 1,000 ML IV SCH (07:20)
[2017-08-21 07:36] VITALS: TEMP 98.5
[2017-08-21] MEDS: CHOLECALCIFEROL 1,000 UNIT TAB PO SCH (07:37)
[2017-08-21 07:54] LABS: Calcium 8.1 mg/dL (8.4-10.2); Potassium 3.8 mmol/L (3.5-5.1)
[2017-08-21 07:59] LABS: Anisocytosis Slight; CH 31.9; CHCM 32.3; HCT 25.4 % (34.0-46.0); HDW 2.88; HGB 8.2 gm/dL (11.4-16.0); MCH 31.8 pg (25.0-35.0); MCHC 32.1 g/dL (31.0-37.0); Macrocytosis Slight; Mean Platelet Volume 6.8; RBC 2.57 m/uL (3.80-5.40); RDW 16.5 % (11.5-15.5); WBC 2.2 k/uL (3.8-10.6)
[2017-08-21] MEDS: ONDANSETRON 4 MG/2 ML VIAL IVP PRN (08:25)
[2017-08-21 12:21] VITALS: BP 111/62; PULSE 70
--- NOTE | 2017-08-21 12:41 | P.DS ---
Providers Date of admission: 08/19/17 01:08 Attending physician: Horacio Pierce Consults: 08/19/17 01:09 Consult Physician Routine Consulting Provider: Chris Reid Consult Reason/Comments: Constipation / ileus Do you want consulting provider notified?: Yes Consult Physician Routine Consulting Provider: Ramon Suh Consult Reason/Comments: Breast cancer with mets Do you want consulting provider notified?: Yes Primary care physician: [facility] Course: Patient was admitted secondary to shortness of breath related to ascites and patient will undergo paracentesis yesterday with removal of about 5.7 L of acetic fluid patient is feeling much better and patient is also being treated for urinary tract infection PHYSICAL EXAMINATION: GENERAL: The patient is alert and oriented x3, not in any acute distress. Thin built female, amylase in hallways HEENT: Pupils are round and equally reacting to light. EOMI. No scleral icterus. No conjunctival pallor. Normocephalic, atraumatic. No pharyngeal erythema. No thyromegaly. CARDIOVASCULAR: S1 and S2 present. No murmurs, rubs, or gallops. PULMONARY: Chest is clear to auscultation, no wheezing or crackles. ABDOMEN: Soft, nontender, nondistended, normoactive bowel sounds. No palpable organomegaly. Ascites improved significantly MUSCULOSKELETAL: No joint swelling or deformity. EXTREMITIES: No cyanosis, clubbing, or pedal edema. NEUROLOGICAL: Gross neurological examination did not reveal any focal deficits. SKIN: No rashes. Abdominal pain: Secondary to tense ascites and constipation constipation resolved for ascites which is probably malignancy-related patient , had ultrasound-guided paracentesis yesterday Shortness of breath: Secondary to ascites, resolved now after paracentesis. Metastatic breast cancer for which patient is on chemotherapy in the oral form which will be continued Constipation: Secondary to opiate analgesia for which we will use symptomatic treatment with MiraLAX senna and Colace. Gastroesophageal reflux disease Acute renal failure: Probably prerenal azotemia can be related to ascites along with intravascularly depletion, Patient will be started on gentle hydration, improved with gentle hydration Plan - Discharge Summary New Discharge Prescriptions: New Cefuroxime Axetil [Ceftin] 500 mg PO BID #10 tab Docusate [Colace] 100 mg PO BID PRN #60 capsule PRN Reason: Constipation Polyethylene Glycol 3350 [Miralax] 17 gm PO DAILY PRN #15 packet PRN Reason: Constipation No Action Cholecalciferol [Vitamin D3] 1,000 unit PO DAILY fentaNYL 100MCG/HR PATCH [Duragesic 100MCG/HR] 1 patch TRANSDERM Q72H oxyCODONE-APAP 10-325MG [Percocet 10-325 mg] 1 tab PO Q4HR PRN PRN Reason: Pain fentaNYL 25MCG/HR PATCH [Duragesic 25MCG/HR] 25 mcg TRANSDERM Q72H Capecitabine [Xeloda] 1,000 mg PO HS #0 Capecitabine [Xeloda] 1,500 mg PO QAM #0 Multivitamins, Thera [Multivitamin (formulary)] 1 tab PO DAILY Discharge Medication List Cholecalciferol [Vitamin D3] 1,000 unit PO DAILY 02/19/15 [History] fentaNYL 100MCG/HR PATCH [Duragesic 100MCG/HR] 1 patch TRANSDERM Q72H 07/18/16 [ History] oxyCODONE-APAP 10-325MG [Percocet 10-325 mg] 1 tab PO Q4HR PRN 11/28/16 [History ] fentaNYL 25MCG/HR PATCH [Duragesic 25MCG/HR] 25 mcg TRANSDERM Q72H 02/14/17 [ History] Capecitabine [Xeloda] 1,000 mg PO HS #0 02/24/17 [Rx] Capecitabine [Xeloda] 1,500 mg PO QAM #0 02/24/17 [Rx] Multivitamins, Thera [Multivitamin (formulary)] 1 tab PO DAILY 08/18/17 [History ] Cefuroxime Axetil [Ceftin] 500 mg PO BID #10 tab 08/21/17 [Rx] Docusate [Colace] 100 mg PO BID PRN #60 capsule 08/21/17 [Rx] Polyethylene Glycol 3350 [Miralax] 17 gm PO DAILY PRN #15 packet 08/21/17 [Rx] Follow up Appointment(s)/Referral(s): Chilango Watts MD [Primary Care Provider] - 3 Days Discharge Disposition: HOME SELF-CARE
== END 2017-08-21 15:47 | disposition home or self-care (01) | DRG 598 ==
LOC: EC 22:17 → 5ONC 08-19 01:08
PROVIDERS: ADMIT Internal Medicine; ATTEND Internal Medicine
PROC: 0W9G3ZZ Drainage of Peritoneal Cavity, Percutaneous Approach (ICD-10-PCS; principal; 2017-08-20)
DX: C50.919 Malignant neoplasm of unspecified site of unspecified female breast (principal); R18.0 Malignant ascites; N17.9 Acute kidney failure, unspecified; C79.51 Secondary malignant neoplasm of bone; C78.7 Secondary malignant neoplasm of liver and intrahepatic bile duct; K76.6 Portal hypertension; N13.30 Unspecified hydronephrosis; N39.0 Urinary tract infection, site not specified; K74.60 Unspecified cirrhosis of liver; K21.9 Gastro-esophageal reflux disease without esophagitis; K59.03 Drug induced constipation; T40.605A Adverse effect of unspecified narcotics, initial encounter; Z17.0 Estrogen receptor positive status [ER+]; Z79.810 Long term (current) use of selective estrogen receptor modulators (SERMs); Z79.811 Long term (current) use of aromatase inhibitors; Z80.7 Family history of other malignant neoplasms of lymphoid, hematopoietic and related tissues; Z87.891 Personal history of nicotine dependence; Z90.13 Acquired absence of bilateral breasts and nipples; Z92.3 Personal history of irradiation
CPT/HCPCS: 36415; 49083; 71020; 74020; 74176; 80048; 80053; 81001; 82042; 83605; 83880; 84484; 85025; 85027; 85610; 86850; 86900; 86901; 87040; 87070; 87086; 87205; 88108; 88305; 88341; 88342; 93005; 96361; 96374; 96375; 99285